=== PATIENT | male | born 1980 | race Two or more races ===

== ENCOUNTER 2017-07-08 10:35 | Emergency (ER) | payer MEDICAID ==
[~2017-07-08] VITALS: Ht 170.2 cm; Wt 68.0 kg
[2017-07-08 11:23] LABS: Urine Bacteria NONE SEEN /hpf (None Seen); Urine Blood Negative /uL (Negative); Urine Specific Gravity 1.033 (1.001-1.035); Urine WBC 1 /hpf (0 - 3)
[2017-07-08 11:25] LABS: Basophils # (auto) 0.1 uL; Lymphocytes # (auto) 1.5 uL; Mean Corpuscular Volume 91.6 fL (80.0-100.0); Red Cell Distribution Width 13.5 % (11.8-14.3); White Blood Cell 8.6 10^3/uL (4.4-10.8)
[2017-07-08 11:26] LABS: Basophils % (auto) 0.6 % (0.0-2.0); Eosinophils # (auto) 0.3 uL; Eosinophils % (auto) 3.1 % (0.0-7.0); Hematocrit 52.9 % (41.0-53.0); Hemoglobin 18.4 g/dL (13.5-17.5); Lymphocytes % (auto) 16.9 % (10.0-50.0); Mean Corpuscular Hemoglobin 31.9 pg (28.0-32.0); Mean Corpuscular Hgb Conc. 34.8 g/dL (32.0-36.0); Monocytes # (auto) 0.9 uL; Monocytes % (auto) 10.4 % (0.0-12.0); Nucleated Red Blood Cells % 0.1 %; Platelet Count (auto) 263 10^3/uL (140-450); Red Blood Cells 5.78 10^6/uL (4.5-5.90)
[2017-07-08 11:41] LABS: Alanine Aminotransferase 81 U/L (16-61); Albumin 3.9 g/dL (3.4-5.0); Alkaline Phosphatase 129 U/L (45-117); Anion Gap 11 (5-15); Aspartate Aminotransferase 53 U/L (15-37); BUN/Creatinine Ratio 5.6; Bilirubin, Total 0.5 mg/dL (0.2-1.0); Blood Alcohol < 3.0 mg/dL (0-5); Blood Urea Nitrogen 5 mg/dL (7-18); Calcium 8.8 mg/dL (8.5-10.1); Carbon Dioxide 23 mmol/L (21-32); Chloride 106 mmol/L (98-107); GFR African American 124 mL/min; GFR Non-African American 103 mL/min; Glucose 124 mg/dL (74-106); Potassium 3.9 mmol/L (3.5-5.1); Sodium 140 mmol/L (136-145); Total Protein 8.3 g/dL (6.4-8.2)
[2017-07-08 11:43] LABS: Amphetamine Screen, Urine NEGATIVE (NEGATIVE); Barbiturate Scree,Urine NEGATIVE (NEGATIVE); Benzodiazephine Screen, Urine NEGATIVE (NEGATIVE); Cocaine Screen, Urine NEGATIVE (NEGATIVE); Opiate Scree,Urine NEGATIVE (NEGATIVE); Phencyclidine Screen, Urine NEGATIVE (NEGATIVE)
[2017-07-08 12:04] LABS: Cannabinoid Screen, Urine POSITIVE (NEGATIVE)
[2017-07-08 12:14] VITALS: BP 163/97
[2017-07-08] MEDS ORDERED: LORazepam 2MG/ML-1ML VIAL IV ONE (12:15)
[2017-07-08] MEDS ORDERED: chlordiazePOXIDE HCL 25 MG CAP PO ONE (12:15)
== END 2017-07-08 13:42 | disposition home or self-care (01) ==
LOC: ER 10:35
DX: F10.239 Alcohol dependence with withdrawal, unspecified (principal); F10.229 Alcohol dependence with intoxication, unspecified; F17.210 Nicotine dependence, cigarettes, uncomplicated; F12.10 Cannabis abuse, uncomplicated; Y90.9 Presence of alcohol in blood, level not specified
CPT/HCPCS: 36415; 80053; 80307; 80320; 81001; 85025; 93005; 96374; 99285; J2060

== ENCOUNTER 2017-07-21 17:19 | Emergency (ER) | payer MEDICAID ==
[~2017-07-21] VITALS: Ht 170.2 cm; Wt 68.0 kg
[2017-07-21] MEDS ORDERED: SODIUM CHLORIDE 0.9% 1,000 ML IV ONE (17:45)
[2017-07-21] MEDS ORDERED: ONDANSETRON HCL 4 MG/2 ML VIAL IV ONE (18:00)
[2017-07-21] MEDS ORDERED: PANTOPRAZOLE 40 MG/10 ML VIAL IV ONE (18:00)
[2017-07-21 18:06] VITALS: BP 134/76
[2017-07-21 18:27] LABS: Basophils # (auto) 0.1 uL; Basophils % (auto) 0.9 % (0.0-2.0); Eosinophils # (auto) 0.2 uL; Eosinophils % (auto) 3.3 % (0.0-7.0); Hematocrit 49.8 % (41.0-53.0); Hemoglobin 17.2 g/dL (13.5-17.5); Lymphocytes # (auto) 2.6 uL; Lymphocytes % (auto) 43.4 % (10.0-50.0); Mean Corpuscular Hemoglobin 31.7 pg (28.0-32.0); Mean Corpuscular Hgb Conc. 34.5 g/dL (32.0-36.0); Mean Corpuscular Volume 91.9 fL (80.0-100.0); Monocytes # (auto) 0.7 uL; Monocytes % (auto) 11.4 % (0.0-12.0); Neutrophils # (auto) 2.5 uL; Nucleated Red Blood Cells % 0.2 %; Platelet Count (auto) 295 10^3/uL (140-450); Red Blood Cells 5.42 10^6/uL (4.5-5.90)
[2017-07-21 18:33] LABS: Urine Bacteria NONE SEEN /hpf (None Seen); Urine Blood Negative /uL (Negative); Urine Specific Gravity 1.008 (1.001-1.035); Urine WBC <1 /hpf (0 - 3)
[2017-07-21 18:47] LABS: Albumin 3.5 g/dL (3.4-5.0); BUN/Creatinine Ratio 3.3; Calcium 7.5 mg/dL (8.5-10.1); Potassium 3.4 mmol/L (3.5-5.1)
[2017-07-21 18:50] LABS: Bilirubin, Total 0.6 mg/dL (0.2-1.0); Total Protein 7.6 g/dL (6.4-8.2)
[2017-07-21 18:54] LABS: Amphetamine Screen, Urine NEGATIVE (NEGATIVE); Barbiturate Scree,Urine NEGATIVE (NEGATIVE); Benzodiazephine Screen, Urine NEGATIVE (NEGATIVE); Cannabinoid Screen, Urine POSITIVE (NEGATIVE); Cocaine Screen, Urine NEGATIVE (NEGATIVE); Opiate Scree,Urine NEGATIVE (NEGATIVE); Phencyclidine Screen, Urine NEGATIVE (NEGATIVE)
== END 2017-07-21 19:20 | disposition home or self-care (01) ==
LOC: EDUNIT# 17:19 → EDBD 17:19 → ER 17:19
DX: K29.70 Gastritis, unspecified, without bleeding (principal); F10.129 Alcohol abuse with intoxication, unspecified; F17.210 Nicotine dependence, cigarettes, uncomplicated; F12.10 Cannabis abuse, uncomplicated
CPT/HCPCS: 36415; 80053; 80307; 80320; 81001; 85025; 96361; 96374; 96375; 99284; C9113; J2405; J7030

== ENCOUNTER 2017-09-21 08:44 | Emergency (ER) | payer MEDICAID ==
[2017-09-21] MEDS ORDERED: SODIUM CHLORIDE 0.9% 1,000 ML IVB ONE (08:51)
[2017-09-21] MEDS ORDERED: THIAMINE 100mg/ml INJ (200mg/2ml VIAL) IV ONE (09:00)
[2017-09-21 09:32] LABS: Basophils # (auto) 0 uL; Eosinophils # (auto) 0.5 uL
[2017-09-21 09:33] LABS: Basophils % (auto) 0.5 % (0.0-2.0); Eosinophils % (auto) 6.4 % (0.0-7.0); Hematocrit 52.1 % (41.0-53.0); Hemoglobin 17.9 g/dL (13.5-17.5); Lymphocytes # (auto) 2.7 uL; Lymphocytes % (auto) 34.3 % (10.0-50.0); Mean Corpuscular Hemoglobin 30.8 pg (28.0-32.0); Mean Corpuscular Hgb Conc. 34.3 g/dL (32.0-36.0); Mean Corpuscular Volume 89.8 fL (80.0-100.0); Monocytes # (auto) 0.8 uL; Monocytes % (auto) 10.5 % (0.0-12.0); Neutrophils # (auto) 3.8 uL; Neutrophils % (auto) 48.3 % (37.0-80.0); Nucleated Red Blood Cells % 0.9 %; Platelet Count (auto) 296 10^3/uL (140-450); Red Cell Distribution Width 13.5 % (11.8-14.3); White Blood Cell 7.9 10^3/uL (4.4-10.8)
[2017-09-21 09:49] LABS: Albumin 3.9 g/dL (3.4-5.0); Calcium 8.2 mg/dL (8.5-10.1); Potassium 3.8 mmol/L (3.5-5.1)
[2017-09-21 10:00] LABS: Bilirubin, Total 0.5 mg/dL (0.2-1.0); Total Protein 8.4 g/dL (6.4-8.2)
[2017-09-21] MEDS ORDERED: chlordiazePOXIDE HCL 5 MG CAP PO ONE (10:45)
[2017-09-21] MEDS ORDERED: SODIUM CHLORIDE 0.9% 1,000 ML IV ONE (11:15)
[2017-09-21 12:42] LABS: Urine Bacteria NONE SEEN /hpf (None Seen); Urine Blood Negative /uL (Negative); Urine Mucus FEW (None Seen); Urine Specific Gravity 1.008 (1.001-1.035); Urine WBC <1 /hpf (0 - 3)
[2017-09-21 12:51] LABS: Amphetamine Screen, Urine NEGATIVE (NEGATIVE); Barbiturate Scree,Urine NEGATIVE (NEGATIVE); Benzodiazephine Screen, Urine POSITIVE (NEGATIVE); Cannabinoid Screen, Urine NEGATIVE (NEGATIVE); Cocaine Screen, Urine NEGATIVE (NEGATIVE); Opiate Scree,Urine NEGATIVE (NEGATIVE); Phencyclidine Screen, Urine NEGATIVE (NEGATIVE)
[2017-09-21 13:00] VITALS: BP 108/79
== END 2017-09-21 13:48 | disposition home or self-care (01) ==
LOC: EDUNIT# 08:44 → ER 08:48
DX: F10.129 Alcohol abuse with intoxication, unspecified (principal); F41.9 Anxiety disorder, unspecified; F32.9 Major depressive disorder, single episode, unspecified; K21.9 Gastro-esophageal reflux disease without esophagitis; F17.210 Nicotine dependence, cigarettes, uncomplicated; F12.10 Cannabis abuse, uncomplicated; Y90.9 Presence of alcohol in blood, level not specified
CPT/HCPCS: 36415; 80053; 80307; 80320; 81001; 85025; 96374; 99284; J3411; J7030

== ENCOUNTER 2017-09-26 03:21 | Emergency (ER) | payer MEDICAID ==
[~2017-09-26] VITALS: Ht 170.2 cm; Wt 59.0 kg
[2017-09-26 03:36] VITALS: BP 147/96
== END 2017-09-26 07:15 | disposition home or self-care (01) ==
LOC: ER 03:23
DX: K04.7 Periapical abscess without sinus (principal); K21.9 Gastro-esophageal reflux disease without esophagitis; F17.210 Nicotine dependence, cigarettes, uncomplicated; F12.10 Cannabis abuse, uncomplicated; Z88.8 Allergy status to other drugs, medicaments and biological substances

== ENCOUNTER 2017-10-12 11:53 | Emergency (ER) | payer MEDICAID ==
[~2017-10-12] VITALS: Ht 175.3 cm; Wt 77.1 kg
[2017-10-12 12:26] LABS: Basophils # (auto) 0 uL; Basophils % (auto) 0.5 % (0.0-2.0); Eosinophils # (auto) 0.1 uL; Eosinophils % (auto) 1.9 % (0.0-7.0); Hematocrit 45.6 % (41.0-53.0); Hemoglobin 15.6 g/dL (13.5-17.5); Lymphocytes % (auto) 16.5 % (10.0-50.0); Mean Corpuscular Hemoglobin 31.3 pg (28.0-32.0); Mean Corpuscular Hgb Conc. 34.3 g/dL (32.0-36.0); Mean Corpuscular Volume 91.2 fL (80.0-100.0); Monocytes # (auto) 0.6 uL; Monocytes % (auto) 9.1 % (0.0-12.0); Neutrophils # (auto) 4.4 uL; Platelet Count (auto) 251 10^3/uL (140-450); Red Cell Distribution Width 15.6 % (11.8-14.3); White Blood Cell 6.2 10^3/uL (4.4-10.8)
[2017-10-12] MEDS ORDERED: LORazepam 2MG/ML-1ML VIAL ONE (12:28)
[2017-10-12] MEDS ORDERED: SODIUM CHLORIDE 0.9% 1,000 ML IVB ONE (12:40)
[2017-10-12] MEDS ORDERED: THIAMINE INJ 100 MG, MULTIPLE VITAMIN 10 ML, FOLIC ACID 1 MG, MAGNESIUM SULF SDV 50% 8 ... IV SCH ×5 (12:44)
[2017-10-12 12:45] LABS: Albumin 3.4 g/dL (3.4-5.0); Anion Gap 9 (5-15); Blood Urea Nitrogen 8 mg/dL (7-18); Calcium 7.8 mg/dL (8.5-10.1); Carbon Dioxide 22 mmol/L (21-32); Chloride 112 mmol/L (98-107); Glucose 110 mg/dL (74-106); Potassium 3.9 mmol/L (3.5-5.1); Sodium 143 mmol/L (136-145)
[2017-10-12] MEDS ORDERED: LORazepam 2MG/ML-1ML VIAL IV ONE ×2 (12:45→15:45)
[2017-10-12] MEDS ORDERED: ALUM & MAG HYDROX-SIMETH LIQ(MAALOX) 30 ML PO ONE (12:45)
[2017-10-12] MEDS ORDERED: DONNATAL 5ml ORAL Elix (BELLADONNA ALK-PHENOBARB) PO ONE (12:45)
[2017-10-12] MEDS ORDERED: FAMOTIDINE 20 MG TAB PO ONE (12:45)
[2017-10-12] MEDS ORDERED: PROMETHAZINE HCL 25 MG/ML 1ML IV PRN (12:45)
[2017-10-12] MEDS ORDERED: LIDOCAINE VISCOUS 2% 15ML UD PO ONE (12:45)
[2017-10-12 12:47] LABS: Alanine Aminotransferase 124 U/L (16-61); Aspartate Aminotransferase 65 U/L (15-37); BUN/Creatinine Ratio 9.8; GFR African American 138 mL/min; GFR Non-African American 114 mL/min
[2017-10-12 12:50] LABS: Alkaline Phosphatase 101 U/L (45-117); Bilirubin, Total 0.6 mg/dL (0.2-1.0); Blood Alcohol < 3.0 mg/dL (0-5); Total Protein 7.2 g/dL (6.4-8.2)
[2017-10-12 13:20] LABS: Magnesium 1.9 mg/dL (1.6-2.6)
[2017-10-12 13:50] LABS: Urine Bacteria NONE SEEN /hpf (None Seen); Urine Blood Negative /uL (Negative); Urine Mucus FEW (None Seen); Urine Specific Gravity 1.013 (1.001-1.035); Urine WBC 1 /hpf (0 - 3)
[2017-10-12 14:08] LABS: Amphetamine Screen, Urine NEGATIVE (NEGATIVE); Barbiturate Scree,Urine NEGATIVE (NEGATIVE); Benzodiazephine Screen, Urine POSITIVE (NEGATIVE); Cannabinoid Screen, Urine NEGATIVE (NEGATIVE); Cocaine Screen, Urine NEGATIVE (NEGATIVE); Opiate Scree,Urine NEGATIVE (NEGATIVE); Phencyclidine Screen, Urine NEGATIVE (NEGATIVE)
[2017-10-12] MEDS ORDERED: SODIUM CHLORIDE 0.9% 1,000 ML IV ONE (15:00)
[2017-10-12 16:42] VITALS: BP 135/85
== END 2017-10-12 16:56 | disposition home or self-care (01) ==
LOC: EDBD 11:53 → ER 11:53
DX: F10.239 Alcohol dependence with withdrawal, unspecified (principal); K29.20 Alcoholic gastritis without bleeding; K21.9 Gastro-esophageal reflux disease without esophagitis; F17.210 Nicotine dependence, cigarettes, uncomplicated
CPT/HCPCS: 36415; 80053; 80307; 80320; 81001; 83690; 83735; 85025; 93005; 96365; 96366; 96375; 96376; 99285; J2060; J3411; J3475; J7030

== ENCOUNTER 2018-04-19 21:34 | Emergency (ER) | payer MEDICAID ==
[~2018-04-19] VITALS: Ht 172.7 cm; Wt 72.6 kg
[2018-04-19] MEDS ORDERED: MVI in SODIUM CHLORIDE 0.9% 1,010 ML ONE (22:09)
[2018-04-19] MEDS ORDERED: LORazepam 2MG/ML-1ML VIAL IM ONE (22:15)
[2018-04-19 22:24] LABS: Basophils # (auto) 0.1 uL; Neutrophils # (auto) 3.3 uL; White Blood Cell 7.7 10^3/uL (4.4-10.8)
[2018-04-19 22:25] LABS: Basophils % (auto) 1.2 % (0.0-2.0); Eosinophils # (auto) 0.4 uL; Eosinophils % (auto) 4.8 % (0.0-7.0); Hematocrit 52.9 % (41.0-53.0); Hemoglobin 18.4 g/dL (13.5-17.5); Lymphocytes # (auto) 3.3 uL; Lymphocytes % (auto) 43.5 % (10.0-50.0); Mean Corpuscular Hemoglobin 31.6 pg (28.0-32.0); Mean Corpuscular Hgb Conc. 34.8 g/dL (32.0-36.0); Mean Corpuscular Volume 90.7 fL (80.0-100.0); Monocytes # (auto) 0.6 uL; Monocytes % (auto) 8.1 % (0.0-12.0); Neutrophils % (auto) 42.4 % (37.0-80.0); Nucleated Red Blood Cells % 0.4 %; Platelet Count (auto) 392 10^3/uL (140-450); Red Blood Cells 5.84 10^6/uL (4.5-5.90); Red Cell Distribution Width 14.7 % (11.8-14.3)
[2018-04-19 22:44] LABS: Albumin 4.1 g/dL (3.4-5.0); Calcium 8.2 mg/dL (8.5-10.1); Potassium 3.8 mmol/L (3.5-5.1)
[2018-04-19 22:47] LABS: BUN/Creatinine Ratio 7.6; Bilirubin, Total 0.6 mg/dL (0.2-1.0); Total Protein 8.6 g/dL (6.4-8.2)
[2018-04-19 22:59] LABS: Acetaminophen < 2.0 ug/mL (10-30); Salicylate < 1.7 mg/dL (2.8-20.0)
[2018-04-19] MEDS ORDERED: FAMOTIDINE (10MG/ML) 2ML VL IV ONE (23:30)
[2018-04-19] MEDS ORDERED: MORPHINE SULFATE 4 MG/ML SYR/VIAL IV ONE ×2 (23:30)
[2018-04-19] MEDS ORDERED: ONDANSETRON HCL 4 MG/2 ML VIAL IV ONE ×2 (23:30)
[2018-04-20 01:20] VITALS: BP 118/60
[2018-04-20] MEDS ORDERED: MULTIPLE VITAMIN 10 ML, MAGNESIUM SULF SDV 50% 8 MEQ in SODIUM CHLORIDE 0.9% 1,000 ML IV SCH (12:00)
== END 2018-04-20 02:11 | disposition home or self-care (01) ==
LOC: ER 21:44
DX: K29.70 Gastritis, unspecified, without bleeding (principal); F10.229 Alcohol dependence with intoxication, unspecified; G92 Toxic encephalopathy; K21.9 Gastro-esophageal reflux disease without esophagitis; F17.210 Nicotine dependence, cigarettes, uncomplicated; F12.90 Cannabis use, unspecified, uncomplicated; Z88.8 Allergy status to other drugs, medicaments and biological substances
CPT/HCPCS: 36415; 74176; 80053; 80320; 80329; 82150; 83690; 85025; 96372; 96374; 96375; 99284; J2060; J2270; J2405; J3411; J3475; J3490

== ENCOUNTER 2018-10-25 09:42 | Inpatient (IN) | payer MEDICAID ==
[~2018-10-25] VITALS: Ht 170.2 cm; Wt 78.1 kg
[2018-10-25] MEDS ORDERED: SODIUM CHLORIDE 0.9% 1,000 ML IV ONE (10:15)
[2018-10-25] MEDS ORDERED: MVI in SODIUM CHLORIDE 0.9% 1,010 ML IV ONE (10:25)
[2018-10-25] MEDS ORDERED: LORazepam 2MG/ML-1ML VIAL IV ONE (10:30)
[2018-10-25] MEDS ORDERED: THIAMINE 100mg/ml INJ (200mg/2ml VIAL) IV ONE ×2 (10:30→15:15)
[2018-10-25 10:37] LABS: Basophils # (auto) 0.1 uL; Eosinophils # (auto) 0.1 uL; Eosinophils % (auto) 0.9 % (0.0-7.0); Monocytes # (auto) 0.9 uL; Platelet Count (auto) 316 10^3/uL (140-450); White Blood Cell 10.6 10^3/uL (4.4-10.8)
[2018-10-25 10:39] LABS: Hemoglobin 19.7 g/dL (13.5-17.5); Lymphocytes # (auto) 1.5 uL; Lymphocytes % (auto) 14.5 % (10.0-50.0); Mean Corpuscular Hemoglobin 33.2 pg (28.0-32.0); Mean Corpuscular Hgb Conc. 34.9 g/dL (32.0-36.0); Monocytes % (auto) 8.3 % (0.0-12.0); Neutrophils % (auto) 75.3 % (37.0-80.0); Red Blood Cells 5.93 10^6/uL (4.5-5.90); Red Cell Distribution Width 13.8 % (11.8-14.3)
[2018-10-25 10:40] LABS: Hematocrit 56.3 % (41.0-53.0); Nucleated Red Blood Cells % 0.5 %
[2018-10-25 10:58] LABS: Albumin 4.3 g/dL (3.4-5.0); Calcium 9.2 mg/dL (8.5-10.1); Potassium 3.9 mmol/L (3.5-5.1)
[2018-10-25 10:59] LABS: INR 1.06 (0.9-1.15); Partial Thromboplastin Time 26.3 sec (23.64-32.05)
[2018-10-25 11:01] LABS: BUN/Creatinine Ratio 7.2; Bilirubin, Total 1.9 mg/dL (0.2-1.0); Total Protein 8.8 g/dL (6.4-8.2)
[2018-10-25 13:17] LABS: Urine WBC None Seen /hpf (0 - 3)
[2018-10-25 13:40] LABS: Urine Amorphous Crystal FEW /hpf (None Seen); Urine Bacteria NONE SEEN /hpf (None Seen); Urine Blood Negative /uL (Negative); Urine Mucus FEW (None Seen); Urine Specific Gravity 1.025 (1.001-1.035)
[2018-10-25 13:59] LABS: Amphetamine Screen, Urine NEGATIVE (NEGATIVE); Barbiturate Scree,Urine NEGATIVE (NEGATIVE); Benzodiazephine Screen, Urine NEGATIVE (NEGATIVE); Cannabinoid Screen, Urine POSITIVE (NEGATIVE); Cocaine Screen, Urine NEGATIVE (NEGATIVE); Opiate Scree,Urine NEGATIVE (NEGATIVE); Phencyclidine Screen, Urine NEGATIVE (NEGATIVE)
[2018-10-25 14:05] LABS: Amylase 28 U/L (25-115); Lipase 22 U/L (73-393)
[2018-10-25] MEDS ORDERED: ONDANSETRON HCL 4 MG/2 ML VIAL ONE (15:11)
[2018-10-25] MEDS ORDERED: chlordiazePOXIDE HCL 25 MG CAP PO ONE (15:15)
[2018-10-25] MEDS ORDERED: NITROGLYCERIN 0.4 MG SL TAB SL PRN (15:15)
[2018-10-25] MEDS ORDERED: chlordiazePOXIDE HCL 25 MG CAP PO PRN (15:15)
[2018-10-25] MEDS ORDERED: PROMETHAZINE HCL 25 MG/ML 1ML IV PRN (15:15)
[2018-10-25] MEDS ORDERED: ONDANSETRON HCL 4 MG/2 ML VIAL IV ONE (15:15)
[2018-10-25] MEDS ORDERED: cefTRIAXone 1GM/50ML D5W 50 ML IV ONE (15:15)
[2018-10-25] MEDS ORDERED: DEXTROSE (50%) 50ML SYRG IV PRN (15:15)
[2018-10-25] MEDS ORDERED: MORPHINE SULF INJ 2 MG/ML SYRINGE 1ML IV PRN (15:15)
[2018-10-25] MEDS: SODIUM CHLORIDE 0.9% 1,000 ML IV SCH ×2 (15:51→21:49)
[2018-10-25] MEDS: LORazepam 2MG/ML-1ML VIAL IV PRN ×2 (15:52→20:03)
[2018-10-25] MEDS: MORPHINE SULFATE 4 MG/ML SYR/VIAL IV PRN ×2 (15:52→20:02)
--- NOTE | 2018-10-25 17:42 | NUR ---
Telemetry admit from JANET KIMBALL admitted to Telemetry unit after SBAR received. Patient oriented to Lida russell RN, unit, room, bed, and unit policies regarding patient care and visiting hours. Patient now on continuous telemetry monitoring, tele box # 49 and telemetry reading on arrival to unit is sinus rhythm in the 90's. Patient weighed by bedscale and encouraged to call if they need something. All questions and concerns addressed, patient verbalized understanding.
[2018-10-25] MEDS: chlordiazePOXIDE HCL 25 MG CAP PO SCH (18:07)
[2018-10-25] MEDS: ACCU-CHEK COMFORT CURVE STRIP VI SCH (18:07)
[2018-10-25 18:30] VITALS: BP 134/101
[2018-10-25 18:41] LABS: Hematocrit 49.4 % (41.0-53.0); Hemoglobin 16.8 g/dL (13.5-17.5)
--- NOTE | 2018-10-25 18:59 | NUR ---
MRSA SWAB OBTAINED AND SENT TO LAB.
--- NOTE | 2018-10-25 19:00 | NUR ---
WOUND PHOTOS TAKEN.
--- NOTE | 2018-10-25 19:25 | NUR ---
Opening Shift Note Received report from sean Hilton RN. Assumed care of patient, awake and alert. No S/S of distress/SOB or pain. Instructed on POC and to call for assist PRN, will continue to monitor for changes Q1hr and PRN. Bed placed in lowest position, bed alarm turned on and call light within reach.
[2018-10-25 20:00] VITALS: BP 135/90
[2018-10-25] MEDS: metroNIDAZOLE 500MG/100ML 100 ML IV SCH (21:47)
[2018-10-25 21:48] VITALS: BP 135/90
[2018-10-25] MEDS: PANTOPRAZOLE 40 MG TAB PO SCH (21:48)
[2018-10-26] MEDS: chlordiazePOXIDE HCL 25 MG CAP PO SCH ×4 (00:33→18:06)
[2018-10-26] MEDS: MORPHINE SULFATE 4 MG/ML SYR/VIAL IV PRN ×6 (00:34→23:45)
[2018-10-26 01:33] LABS: Hematocrit 44.9 % (41.0-53.0); Hemoglobin 15.6 g/dL (13.5-17.5)
[2018-10-26] MEDS: SODIUM CHLORIDE 0.9% 1,000 ML IV SCH ×2 (04:25→11:17)
[2018-10-26 04:51] VITALS: BP 125/74
[2018-10-26] MEDS: metroNIDAZOLE 500MG/100ML 100 ML IV SCH ×3 (05:36→22:14)
[2018-10-26] MEDS: ACCU-CHEK COMFORT CURVE STRIP VI SCH ×4 (05:56→18:06)
--- NOTE | 2018-10-26 06:29 | NUR ---
ROUNDS Patient is resting in bed with eyes closed, no distress noted and patient denies pain with even and unlabored respirations saturating at 97% on room air.
--- NOTE | 2018-10-26 07:20 | NUR ---
PT SLEEPING, EASILY ARISES TO NAME. COOPERATIVE OF CARE. EFFORTLESS BREATHING ON ROOM AIR. IV PATENT TO LAC#18. BED LOCKED AND IN LOWEST POSITION, CALL LIGHT WITHIN REACH. WILL CONTINUE TO MONITOR.
[2018-10-26 08:00] VITALS: BP 104/50
[2018-10-26 08:11] LABS: Basophils # (auto) 0 uL; Basophils % (auto) 0.5 % (0.0-2.0); Eosinophils # (auto) 0.2 uL; Eosinophils % (auto) 4.2 % (0.0-7.0); Hematocrit 44.7 % (41.0-53.0); Hemoglobin 15.3 g/dL (13.5-17.5); Lymphocytes # (auto) 1.8 uL; Mean Corpuscular Hemoglobin 32.8 pg (28.0-32.0); Mean Corpuscular Hgb Conc. 34.2 g/dL (32.0-36.0); Mean Corpuscular Volume 95.9 fL (80.0-100.0); Monocytes # (auto) 0.6 uL; Monocytes % (auto) 10.2 % (0.0-12.0); Neutrophils # (auto) 3.1 uL; Neutrophils % (auto) 54.1 % (37.0-80.0); Nucleated Red Blood Cells % 0.1 %; Platelet Count (auto) 158 10^3/uL (140-450); Red Blood Cells 4.65 10^6/uL (4.5-5.90); Red Cell Distribution Width 13.3 % (11.8-14.3); White Blood Cell 5.7 10^3/uL (4.4-10.8)
[2018-10-26 08:31] LABS: Amylase 20 U/L (25-115); Calcium 8.1 mg/dL (8.5-10.1); Lipase 20 U/L (73-393); Potassium 3.8 mmol/L (3.5-5.1)
[2018-10-26 08:35] LABS: BUN/Creatinine Ratio 8.6; Bilirubin, Total 2.7 mg/dL (0.2-1.0); Total Protein 6.1 g/dL (6.4-8.2)
[2018-10-26] MEDS: THIAMINE 100mg/ml INJ (200mg/2ml VIAL) IV SCH (08:52)
[2018-10-26] MEDS: PANTOPRAZOLE 40 MG TAB PO SCH ×2 (08:52→22:14)
[2018-10-26] MEDS: cefTRIAXone 1GM/50ML D5W 50 ML IV SCH (08:52)
[2018-10-26] MEDS: LORazepam 2MG/ML-1ML VIAL IV PRN ×2 (08:53→21:43)
[2018-10-26 12:58] VITALS: BP 125/80
--- NOTE | 2018-10-26 13:18 | NUR ---
PT COUNSELLED ON IMPORTANCE OF NOT SMOKING WHILE INPATIENT. PT VERBALIZED HE CANNOT STOP NOR ABSTAIN FROM SMOKING AT THIS TIME. PT OFFERED A NICOTINE PATCH, REFUSED.
--- NOTE | 2018-10-26 13:20 | NUR ---
PT SIGNED WAIVER TO SMOKE AMA.
[2018-10-26] MEDS ORDERED: OCTREOTIDE ACETATE 100 MCG in SODIUM CHL 0.9% 50 ML IV ONE (14:15)
[2018-10-26] MEDS: OCTREOTIDE ACETATE 500 MCG in SODIUM CHL 0.9% 99 ML IV SCH (15:20)
[2018-10-26 16:30] VITALS: BP 117/79
--- NOTE | 2018-10-26 17:22 | NUR ---
assessment Patient is a 37 year old male who is alert and oriented. Patients cognitive abilities are intact. Prior to admission patient lived home with family and functioned independently. Patient informed me he is able to care for his own ADLs. Per patient he will return home to his prior living arrangements post discharge and family will transport him home. Patient informed me he has been drinking since age 13 years. Patient informed me he consumes 15 to 20 shots of vodka per day. Patient is willing to accept resources for rehab. I also informed patient to call the number on his [facility] card and do a phone interview for counseling. Patient agreed to call. Patient did not want to talk about his past or childhood. Patient stated he would talk to a therapist on his own. [facility] will provide patient with rehab resources. I informed patient he has a right to speak to a manager social responsibility regarding all care. I informed patient he has a right to participate in any and all discharge planning. Patient is aware of visiting hours on the hospital floor. I informed patient he has a right to privacy. Patient does not have a POA and advanced directive. I have offered patient information on POA and advanced directives. I informed the patient the advantages and benefits of having an Advanced Directive. Patient verbalized understanding and agreed to discharge plan home. Addendum: 10/26/18 at 1725 by Arianna BLAIR Amended: Links added.
[2018-10-26 22:00] VITALS: BP 138/83
[2018-10-27] MEDS: chlordiazePOXIDE HCL 25 MG CAP PO SCH ×3 (00:15→11:52)
[2018-10-27] MEDS ORDERED: ONDANSETRON HCL 4 MG/2 ML VIAL IV PRN ×2 (01:15→09:00)
[2018-10-27] MEDS: OCTREOTIDE ACETATE 500 MCG in SODIUM CHL 0.9% 99 ML IV SCH (01:50)
[2018-10-27] MEDS: LORazepam 2MG/ML-1ML VIAL IV PRN ×2 (01:51→04:00)
[2018-10-27] MEDS: MORPHINE SULFATE 4 MG/ML SYR/VIAL IV PRN ×2 (04:00→11:53)
[2018-10-27 05:00] VITALS: BP 131/86
[2018-10-27] MEDS ORDERED: HYDROmorphone HCL 2 MG/ML VL IV ONE (06:00)
[2018-10-27] MEDS: ACCU-CHEK COMFORT CURVE STRIP VI SCH ×3 (06:00→11:53)
[2018-10-27 06:31] LABS: Basophils # (auto) 0 uL; Basophils % (auto) 0.5 % (0.0-2.0); Eosinophils # (auto) 0.3 uL; Eosinophils % (auto) 5.9 % (0.0-7.0); Hemoglobin 16.6 g/dL (13.5-17.5); Lymphocytes % (auto) 17.4 % (10.0-50.0); Mean Corpuscular Hgb Conc. 34.6 g/dL (32.0-36.0); Mean Corpuscular Volume 95.5 fL (80.0-100.0); Monocytes # (auto) 0.5 uL; Monocytes % (auto) 9.3 % (0.0-12.0); Neutrophils # (auto) 3.9 uL; Neutrophils % (auto) 66.9 % (37.0-80.0); Nucleated Red Blood Cells % 0.1 %; Platelet Count (auto) 141 10^3/uL (140-450); Red Blood Cells 5.03 10^6/uL (4.5-5.90); Red Cell Distribution Width 12.9 % (11.8-14.3); White Blood Cell 5.8 10^3/uL (4.4-10.8)
[2018-10-27] MEDS: metroNIDAZOLE 500MG/100ML 100 ML IV SCH (06:37)
--- NOTE | 2018-10-27 06:40 | NUR ---
IV to L AC red and tender per patient. D/c'd IV and New IV started to L KIMBROUGH 22 G. Pain medication given per orders for 1x dose. Patient complained of pain all night with very little relief from pain meds. Stated he also has hallucinations from time to time from morphine. Hospitalist was notified around 0030. With no changes to medication. Ativan was given often per orders almost q2. NPO since 0000. Consents signed for EGD and checklist completed. No BM last night. Continues on drip per orders.
[2018-10-27 06:50] LABS: Calcium 8.5 mg/dL (8.5-10.1); Potassium 3.9 mmol/L (3.5-5.1)
[2018-10-27 06:53] LABS: BUN/Creatinine Ratio 5.6
[2018-10-27 08:22] VITALS: BP 110/68
--- NOTE | 2018-10-27 08:32 | NUR ---
D/C Planning Per SS Consult for ETOH abuse.Pt friend Sridevi was at bedside when speaking to Pt. Pt stated he drinks 15-20 shots of Vodka a day for the last 2 years however, he stated he has been drinking all his life on and off. Pt stated he enjoys drinking because he likes the taste of the alcohol and he also stated he needs help. Pt was given resources for alcohol service Providers and stated he will be contacting [facility] upon d/c day. Pt verbalize understanding.
[2018-10-27] MEDS ORDERED: ePHEDrine SULFATE 50 MG/ML AMP IV PRN (09:00)
[2018-10-27] MEDS ORDERED: MIDAZOLAM HCL 1MG/1ML-2 ML VIAL IV PRN (09:00)
[2018-10-27] MEDS ORDERED: KETOROLAC TROMETH 30 MG/ML 1ML VIAL IV ONE (09:00)
[2018-10-27] MEDS ORDERED: MORPHINE SULFATE 4 MG/ML SYR/VIAL IV PRN (09:00)
[2018-10-27] MEDS ORDERED: HYDROmorphone HCL 2 MG/ML VL IV PRN (09:00)
[2018-10-27] MEDS ORDERED: LABETALOL HCL 5 MG/ML 4ML SYRINGE IV PRN (09:00)
[2018-10-27] MEDS: cefTRIAXone 1GM/50ML D5W 50 ML IV SCH (09:00)
[2018-10-27] MEDS ORDERED: fentaNYL CITRATE 100 MCG/2 ML VL ONE (09:07)
[2018-10-27] MEDS ORDERED: MIDAZOLAM HCL 1MG/1ML-2 ML VIAL ONE (09:07)
[2018-10-27] MEDS ORDERED: DexAMETHasone SOD PHOS 10MG/1ML VIAL INJ ONE (09:16)
[2018-10-27] MEDS ORDERED: PROPOFOL 10 MG/ML 20 ML IV ONE (09:26)
[2018-10-27] MEDS: PANTOPRAZOLE 40 MG TAB PO SCH (10:50)
[2018-10-27] MEDS: THIAMINE 100mg/ml INJ (200mg/2ml VIAL) IV SCH (10:50)
[2018-10-27 11:43] VITALS: BP 117/77
--- NOTE | 2018-10-27 13:00 | NUR ---
Discharge instructions given as ordered. Encourage to follow up with PMD as instructed. All questions and concerns addressed. Patient verbalized understanding. Medication reconciliation form completed and copy given to patient. Home medications held in Pharmacy returned to patient, and needed vaccines given. IV removed with catheter intact, pressure dressing applied. Telemetry unit returned to ICU. Patient taken to vehicle via wheelchair with all personal belongings, accompanied by staff and family member. No distress noted at time of departure. Educated patient on need to stop drinking and gave numbers for [facility] and the [facility].
== END 2018-10-27 12:35 | disposition home or self-care (01) | DRG 241 ==
LOC: ER 09:46 → TELE 09:47 → TELE-WESTW 17:46
PROVIDERS: ADMIT Internal Medicine; ATTEND Internal Medicine Nephrology
PROC: 0DB68ZX Excision of Stomach, Via Natural or Artificial Opening Endoscopic, Diagnostic (ICD-10-PCS; principal; 2018-10-27 09:01)
DX: K29.71 Gastritis, unspecified, with bleeding (principal); F10.231 Alcohol dependence with withdrawal delirium; K74.60 Unspecified cirrhosis of liver; K20.9 Esophagitis, unspecified; F17.210 Nicotine dependence, cigarettes, uncomplicated; F12.90 Cannabis use, unspecified, uncomplicated; Y90.9 Presence of alcohol in blood, level not specified; K76.0 Fatty (change of) liver, not elsewhere classified; Z80.1 Family history of malignant neoplasm of trachea, bronchus and lung; Z80.3 Family history of malignant neoplasm of breast; Z80.42 Family history of malignant neoplasm of prostate; Z82.49 Family history of ischemic heart disease and other diseases of the circulatory system; Z83.3 Family history of diabetes mellitus; Z88.8 Allergy status to other drugs, medicaments and biological substances
CPT/HCPCS: 36415; 43239; 74176; 80048; 80053; 80307; 80320; 81001; 82150; 82962; 83036; 83690; 85014; 85018; 85025; 85045; 85610; 85730; 87081; G0378; J0696; J1100; J2250; J2405; J2704; J3490

== ENCOUNTER 2019-08-16 15:55 | Inpatient (IN) | payer MEDICAID ==
[~2019-08-16] VITALS: Ht 165.1 cm; Wt 60.9 kg
[2019-08-16] MEDS ORDERED: ACETAMINOPHEN 325 MG TAB PO ONE ×2 (16:37→16:45)
[2019-08-16] MEDS ORDERED: SODIUM CHLORIDE 0.9% 1,000 ML IV SCH (16:59)
[2019-08-16] MEDS ORDERED: DexAMETHasone SOD PHOS 4 MG/1ML SDV INJ IV ONE ×2 (17:00→23:30)
[2019-08-16] MEDS ORDERED: PANTOPRAZOLE 40 MG/10 ML VIAL INJ IV ONE (17:00)
[2019-08-16] MEDS ORDERED: ENOXAPARIN SOD 100 MG/1 ML SYRINGE SC ONE (17:00)
[2019-08-16] MEDS ORDERED: SODIUM CHLORIDE 0.9% 1,000 ML IV ONE (17:00)
[2019-08-16] MEDS ORDERED: ASCORBIC ACID 500 MG TAB PO ONE (17:00)
[2019-08-16] MEDS ORDERED: ONDANSETRON HCL 4 MG/2 ML VIAL IV PRN (17:00)
[2019-08-16] MEDS ORDERED: ZINC SULFATE 220mg CAP or TAB PO ONE (17:00)
[2019-08-16] MEDS ORDERED: LORazepam 0.5 MG TAB PO PRN (17:00)
[2019-08-16] MEDS ORDERED: NITROGLYCERIN 0.4 MG SL TAB SL PRN (17:00)
[2019-08-16] MEDS ORDERED: AZITHROMYCIN 500MG/ 250ML 250 ML IV ONE (17:00)
[2019-08-16] MEDS ORDERED: MORPHINE SULF INJ 2 MG/ML SYRINGE 1ML IV PRN (17:00)
[2019-08-16] MEDS ORDERED: ALUM & MAG HYDROX-SIMETH LIQ(MAALOX) 30 ML PO PRN (17:00)
[2019-08-16] MEDS ORDERED: DOCUSATE SOD 100 MG CAP PO PRN (17:00)
[2019-08-16] MEDS ORDERED: ONDANSETRON HCL 4 MG/2 ML VIAL IV ONE (17:00)
[2019-08-16] MEDS ORDERED: MORPHINE SULF INJ 2 MG/ML SYRINGE 1ML IV ONE (17:00)
[2019-08-16 17:19] LABS: Basophils # (auto) 0 10 ^3/uL (0-0.2); Basophils % (auto) 0.2 % (0.0-2.0); Eosinophils # (auto) 0.1 10 ^3/uL (0-0.8); Eosinophils % (auto) 0.6 % (0.0-7.0); Lymphocytes # (auto) 0.9 10 ^3/uL (0.4-5.4); Lymphocytes % (auto) 5.9 % (10.0-50.0); Mean Corpuscular Hemoglobin 31.2 pg (28.0-32.0); Mean Corpuscular Hgb Conc. 33.5 g/dL (32.0-36.0); Mean Corpuscular Volume 93.1 fL (80.0-100.0); Monocytes # (auto) 0.8 10 ^3/uL (0-1.3); Monocytes % (auto) 5.1 % (0.0-12.0); Neutrophils # (auto) 13.1 10 ^3/uL (1.6-8.6); Neutrophils % (auto) 88.2 % (37.0-80.0); Platelet Count (auto) 293 10^3/uL (140-450); Red Cell Distribution Width 13.9 % (11.8-14.3); White Blood Cell 14.8 10^3/uL (4.4-10.8)
[2019-08-16 17:36] LABS: Alanine Aminotransferase 10 U/L (16-61); Albumin 2.6 g/dL (3.4-5.0); Anion Gap 8 (5-15); Aspartate Aminotransferase 18 U/L (15-37); BUN/Creatinine Ratio 17.5; Blood Urea Nitrogen 14 mg/dL (7-18); Calcium 8.2 mg/dL (8.5-10.1); Carbon Dioxide 25 mmol/L (21-32); Chloride 106 mmol/L (98-107); GFR African American 141 mL/min; GFR Non-African American 116 mL/min; Glucose 97 mg/dL (74-106); Potassium 3.5 mmol/L (3.5-5.1); Sodium 139 mmol/L (136-145)
[2019-08-16 17:40] LABS: Alkaline Phosphatase 66 U/L (45-117); Bilirubin, Total 0.7 mg/dL (0.2-1.0); Total Protein 7.6 g/dL (6.4-8.2)
[2019-08-16 17:43] LABS: Magnesium 2.3 mg/dL (1.6-2.6)
[2019-08-16 17:45] LABS: Cholesterol 103 mg/dL (< 200)
[2019-08-16 17:47] LABS: HDL Cholesterol 22 mg/dL (40-59); LDL Cholesterol 72 mg/dL (< 100); Triglycerides 104 mg/dL (< 150)
[2019-08-16 17:51] LABS: CRP High Sensitivity 15.5 mg/dL (< 0.3)
--- NOTE | 2019-08-16 20:50 | NUR ---
Telemetry admit from JANET KIMBALL admitted to Telemetry unit. Patient oriented to AUDELIA ARITA, primary RN, unit, room, bed, and unit policies regarding patient care and visiting hours. Patient now on continuous telemetry monitoring, tele box #5 and telemetry reading on arrival to unit is SR. Patient placed on bedside oxygen, weighed by bedscale and encouraged to call if they need something. Patient is currently resting in bed with the rails up x2, bed locked in the lowest position and the call light is within reach. All questions and concerns addressed, patient verbalized understanding.
[2019-08-16] MEDS: MORPHINE SULF INJ 2 MG/ML SYRINGE 1ML IV PRN (21:46)
[2019-08-16 22:00] VITALS: BP 106/63
[2019-08-16] MEDS ORDERED: DOXYCYCLINE 100 MG TAB/CAP PO SCH (22:00)
[2019-08-16] MEDS: ALBUTEROL SULF HFA 90MCG INH 200DOSE IN SCH (22:23)
[2019-08-16] MEDS ORDERED: LORazepam 2MG/ML-1ML VIAL IV PRN (23:30)
[2019-08-16] MEDS ORDERED: VANCOMYCIN PER PHARMACY 0 MG IV SCH (23:30)
[2019-08-16] MEDS ORDERED: FUROSEMIDE 20 MG/2 ML VIAL IV ONE (23:30)
[2019-08-16] MEDS ORDERED: VANCOMYCIN 1GM/250ML 250 ML IV ONE (23:45)
[2019-08-16] MEDS ORDERED: FAMOTIDINE (10MG/ML) 2ML VL IV ONE (23:45)
[2019-08-17] MEDS: DexAMETHasone SOD PHOS 4 MG/1ML SDV INJ IV SCH ×4 (01:43→21:54)
[2019-08-17] MEDS: MORPHINE SULF INJ 2 MG/ML SYRINGE 1ML IV PRN ×5 (01:48→20:42)
[2019-08-17 01:57] VITALS: BP 106/63
--- NOTE | 2019-08-17 02:15 | NUR ---
Patient transferred to room 218A Report Given to Sherrie BARRAGAN.
--- NOTE | 2019-08-17 02:20 | NUR ---
Patient arrived to room 218A Patient A&Ox4, 2L NC, VS: T 97.6, RR 20, HR 78, BP 111/74, 94%. Discussed POC with patient who verbalized understanding. IV to right FA which is patent and intact. Applied anti-slip socks and requested patient to call for assistance. Oriented patient to room, bathroom, call light, and bedside supplies. Bed in lowest locked position with 2 side rails up. Call light within reach. Will continue to monitor.
--- NOTE | 2019-08-17 03:25 | NUR ---
Patient requested anti-anxiety medication Patient stated that he was experiencing difficulty relaxing and that he could not stop worrying. Administered 0.5 mg Ativan per EMAR. Will continue to monitor.
[2019-08-17 05:00] VITALS: BP 96/56
[2019-08-17] MEDS ORDERED: FUROSEMIDE 20 MG/2 ML VIAL IV SCH (06:00)
[2019-08-17] MEDS: ALBUTEROL SULF HFA 90MCG INH 200DOSE IN SCH (06:15)
[2019-08-17] MEDS: PIPERACILLIN-TAZOB 3.375GM 100 ML IV SCH ×5 (06:19→23:59)
--- NOTE | 2019-08-17 06:30 | NUR ---
Pain Patient c/o 7/10 chest pain. Administered 2 mg Morphine per EMAR. Will continue to monitor.
--- NOTE | 2019-08-17 07:00 | NUR ---
Pain reassessed Patient resting with eyes closed, respirations even and non-labored with no s/s of distress.
--- NOTE | 2019-08-17 07:25 | NUR ---
Closing shift note Patient resting, no SOB or s/s of distress at this time. Endorsed care to day shift RN.
[2019-08-17 09:00] VITALS: BP 96/56
[2019-08-17] MEDS: FAMOTIDINE (10MG/ML) 2ML VL IV SCH ×2 (09:20→21:54)
[2019-08-17] MEDS: CHOLECALCIFEROL (VITD3) 1,000UNIT=25mCg TAB PO SCH (09:20)
[2019-08-17 09:42] LABS: Basophils # (auto) 0 10 ^3/uL (0-0.2); Basophils % (auto) 0.1 % (0.0-2.0); Eosinophils # (auto) 0 10 ^3/uL (0-0.8); Eosinophils % (auto) 0.1 % (0.0-7.0); Hematocrit 44.3 % (41.0-53.0); Hemoglobin 14.8 g/dL (13.5-17.5); Lymphocytes # (auto) 0.5 10 ^3/uL (0.4-5.4); Lymphocytes % (auto) 3.5 % (10.0-50.0); Mean Corpuscular Hgb Conc. 33.4 g/dL (32.0-36.0); Mean Corpuscular Volume 92.8 fL (80.0-100.0); Monocytes # (auto) 0.3 10 ^3/uL (0-1.3); Monocytes % (auto) 1.8 % (0.0-12.0); Neutrophils # (auto) 13.6 10 ^3/uL (1.6-8.6); Neutrophils % (auto) 94.5 % (37.0-80.0); Platelet Count (auto) 322 10^3/uL (140-450); Red Blood Cells 4.77 10^6/uL (4.5-5.90); Red Cell Distribution Width 14.2 % (11.8-14.3); White Blood Cell 14.4 10^3/uL (4.4-10.8)
[2019-08-17 09:57] LABS: Albumin 2.5 g/dL (3.4-5.0); Magnesium 2.7 mg/dL (1.6-2.6)
[2019-08-17 10:00] LABS: BUN/Creatinine Ratio 16.7
[2019-08-17] MEDS ORDERED: ENOXAPARIN SOD 40 MG/0.4 ML SYRINGE SC SCH (10:00)
[2019-08-17] MEDS ORDERED: ZINC SULFATE 220mg CAP or TAB PO SCH (10:00)
[2019-08-17] MEDS ORDERED: ENOXAPARIN SOD 100 MG/1 ML SYRINGE SC SCH (10:00)
[2019-08-17] MEDS ORDERED: ASCORBIC ACID 1,000 MG TAB PO SCH (10:00)
[2019-08-17 10:01] LABS: Bilirubin, Total 0.8 mg/dL (0.2-1.0); Phosphorus 3.9 mg/dL (2.5-4.90); Total Protein 7.7 g/dL (6.4-8.2)
[2019-08-17 10:04] LABS: INR 1.18 (0.9-1.15); Partial Thromboplastin Time 34.7 sec (23.64-32.05)
[2019-08-17] MEDS: ALBUTEROL SULF 2.5 MG/0.5ML(0.5%) NEB SOLN NEB SCH ×2 (11:51→18:38)
[2019-08-17 13:00] VITALS: BP 101/64
[2019-08-17] MEDS ORDERED: MULTIPLE VITAMINS W/ MINERALS TAB PO ONE (14:00)
[2019-08-17] MEDS ORDERED: THIAMINE HCL 100 MG TAB PO ONE (14:00)
[2019-08-17] MEDS: VANCOMYCIN 1GM/250ML 250 ML IV SCH (14:47)
[2019-08-17 17:00] VITALS: BP 102/62
--- NOTE | 2019-08-17 19:30 | NUR ---
Opening Shift Note Assumed care of patient, awake and alert X4. No S/S of distress/SOB or pain. Call light is within reach, side rails up x2, bed is in the lowest position. Instructed on POC and to call for assist PRN, will continue to monitor for changes Q1hr and PRN.
[2019-08-17] MEDS: guaiFENesin-DM 100/10mg/5ml SYR PO PRN (20:42)
[2019-08-17] MEDS: ENOXAPARIN SOD 80 MG/0.8ML SYRINGE SC SCH (21:54)
[2019-08-17] MEDS: HYDROcodone-ACET 5/325MG TAB PO PRN (21:55)
[2019-08-17 22:00] VITALS: BP 98/69
--- NOTE | 2019-08-18 | NUR ---
Respiratory note: NO TX GIVEN AT THIS TIME PER PT REQUEST. DURING 1800 TX PT STATED HE WANTED TO "POSTPONE" NEXT TX UNTIL 0700. PT WAS NOTIFIED TO CALL FOR TX IF HE CHANGED HIS MIND OR BECOMES SOB. PT VERBALIZED UNDERSTANDING.
[2019-08-18] MEDS: guaiFENesin-DM 100/10mg/5ml SYR PO PRN (00:47)
[2019-08-18] MEDS: MORPHINE SULF INJ 2 MG/ML SYRINGE 1ML IV PRN ×5 (00:47→21:02)
[2019-08-18] MEDS: VANCOMYCIN 1GM/250ML 250 ML IV SCH ×2 (03:03→15:58)
[2019-08-18 05:00] VITALS: BP 104/69
[2019-08-18] MEDS: PIPERACILLIN-TAZOB 3.375GM 100 ML IV SCH ×3 (05:57→18:00)
[2019-08-18] MEDS: ALBUTEROL SULF 2.5 MG/0.5ML(0.5%) NEB SOLN NEB SCH ×4 (06:48→18:26)
[2019-08-18 09:00] VITALS: BP 104/64
[2019-08-18] MEDS: DexAMETHasone SOD PHOS 4 MG/1ML SDV INJ IV SCH (10:15)
[2019-08-18] MEDS: ENOXAPARIN SOD 80 MG/0.8ML SYRINGE SC SCH (10:16)
[2019-08-18] MEDS: FAMOTIDINE (10MG/ML) 2ML VL IV SCH ×2 (10:16→22:00)
[2019-08-18] MEDS: MULTIPLE VITAMINS W/ MINERALS TAB PO SCH (10:16)
[2019-08-18] MEDS: THIAMINE HCL 100 MG TAB PO SCH (10:16)
[2019-08-18] MEDS: CHOLECALCIFEROL (VITD3) 1,000UNIT=25mCg TAB PO SCH (10:16)
[2019-08-18 10:46] LABS: INR 1.24 (0.9-1.15)
[2019-08-18 10:47] LABS: Hematocrit 45.8 % (41.0-53.0); Hemoglobin 15.1 g/dL (13.5-17.5); Mean Corpuscular Hemoglobin 30.8 pg (28.0-32.0); Mean Corpuscular Hgb Conc. 32.9 g/dL (32.0-36.0); Mean Corpuscular Volume 93.7 fL (80.0-100.0); Platelet Count (auto) 334 10^3/uL (140-450); Red Blood Cells 4.88 10^6/uL (4.5-5.90); Red Cell Distribution Width 14.1 % (11.8-14.3); White Blood Cell 18.9 10^3/uL (4.4-10.8)
[2019-08-18 11:03] LABS: Basophils % (manual) 0 (0.0-2.0); Blast Cells 0; Calcium 9.1 mg/dL (8.5-10.1); Eosinophils % (manual) 0 (0-7); Metamyelocytes % 0; Myelocytes % 0; Potassium 3.9 mmol/L (3.5-5.1); Promyelocytes % 0; Reactive Lymphocytes 0
[2019-08-18 11:11] LABS: BUN/Creatinine Ratio 20.6; CRP High Sensitivity 9.96 mg/dL (< 0.3)
[2019-08-18 13:00] VITALS: BP 114/71
[2019-08-18 14:23] LABS: Band Neutrophils % (manual) 2; Lymphocytes % (manual) 2 (10.0-50.0); Monocytes % (manual) 4 (0-12)
[2019-08-18 17:00] VITALS: BP 109/70
[2019-08-18] MEDS: SODIUM CHLORIDE 0.9% 1,000 ML IV SCH (17:14)
--- NOTE | 2019-08-18 18:30 | NUR ---
RT NOTE PT WAS SEEN BY RT FOR HHN TX. PT TOLERATES WELL VIA MASK NOTED. CONT ORDERED. Addendum: 08/18/19 at 1832 by Emma Quinn RT Amended: Links added.
--- NOTE | 2019-08-18 20:00 | NUR ---
Assumed care of patient, awake and alert. No S/S of distress/SOB or pain. Insructed on POC and to callfor assist PRN, will continue to monitor for changes Q1hr and PRN.
[2019-08-18 22:00] VITALS: BP 137/66
[2019-08-19] MEDS: VANCOMYCIN 1GM/250ML 250 ML IV SCH ×6 (00:12→17:47)
[2019-08-19] MEDS: ALBUTEROL SULF 2.5 MG/0.5ML(0.5%) NEB SOLN NEB SCH ×4 (00:14→23:02)
--- NOTE | 2019-08-19 00:15 | NUR ---
RT NOTE PT WAS SEEN BY RT FOR HHN TX. PT TOLERATES WELL VIA MASK. NO ADVERSE REACTION NOTED. LONG NASAL CANNULA PROVIDED FOR PT SO HE CAN USE RESTROOM WITHOUT TAKING OFF NASAL CANNULA. CONT ORDERED Addendum: 08/19/19 at 0034 by Emma Quinn RT Amended: Links added.
[2019-08-19] MEDS: MORPHINE SULF INJ 2 MG/ML SYRINGE 1ML IV PRN ×5 (01:15→22:40)
[2019-08-19 05:00] VITALS: BP 100/71
[2019-08-19 05:36] LABS: Basophils # (auto) 0 10 ^3/uL (0-0.2); Basophils % (auto) 0.2 % (0.0-2.0); Eosinophils # (auto) 0.2 10 ^3/uL (0-0.8); Eosinophils % (auto) 1.4 % (0.0-7.0); Hematocrit 47.2 % (41.0-53.0); Hemoglobin 15.4 g/dL (13.5-17.5); Lymphocytes # (auto) 1.2 10 ^3/uL (0.4-5.4); Mean Corpuscular Hgb Conc. 32.7 g/dL (32.0-36.0); Mean Corpuscular Volume 94.8 fL (80.0-100.0); Monocytes # (auto) 0.6 10 ^3/uL (0-1.3); Monocytes % (auto) 3.8 % (0.0-12.0); Neutrophils # (auto) 12.5 10 ^3/uL (1.6-8.6); Neutrophils % (auto) 86.6 % (37.0-80.0); Platelet Count (auto) 341 10^3/uL (140-450); Red Blood Cells 4.97 10^6/uL (4.5-5.90); Red Cell Distribution Width 13.8 % (11.8-14.3); White Blood Cell 14.5 10^3/uL (4.4-10.8)
[2019-08-19] MEDS: PIPERACILLIN-TAZOB 3.375GM 100 ML IV SCH ×4 (06:02→18:32)
--- NOTE | 2019-08-19 07:40 | NUR ---
Opening Shift Note Assumed care of patient, awake and alert. No S/S of distress/SOB or pain. Instructed on POC and to call for assist PRN, will continue to monitor for changes Q1hr and PRN. Bed locked in lowest position with two side rails up and call light in reach.
[2019-08-19] MEDS: SODIUM CHLORIDE 0.9% 1,000 ML IV SCH (08:55)
[2019-08-19 09:26] VITALS: BP 113/57
[2019-08-19] MEDS: MULTIPLE VITAMINS W/ MINERALS TAB PO SCH (10:24)
[2019-08-19] MEDS: FAMOTIDINE (10MG/ML) 2ML VL IV SCH ×2 (10:24→21:58)
[2019-08-19] MEDS: THIAMINE HCL 100 MG TAB PO SCH (10:24)
[2019-08-19] MEDS: ENOXAPARIN SOD 40 MG/0.4 ML SYRINGE SC SCH (10:25)
[2019-08-19 12:45] VITALS: BP 100/62
[2019-08-19 15:21] LABS: Amphetamine Screen, Urine NEGATIVE (NEGATIVE); Barbiturate Scree,Urine NEGATIVE (NEGATIVE); Benzodiazephine Screen, Urine POSITIVE (NEGATIVE); Cannabinoid Screen, Urine POSITIVE (NEGATIVE); Cocaine Screen, Urine NEGATIVE (NEGATIVE); Opiate Scree,Urine POSITIVE (NEGATIVE); Phencyclidine Screen, Urine NEGATIVE (NEGATIVE)
[2019-08-19] MEDS: PROMETHAZINE W/CODEINE 5 ML ORAL SYRUP PO PRN (15:33)
[2019-08-19] MEDS ORDERED: IOHEXOL 350 MG/ML 100ML IJ ONE (16:10)
--- NOTE | 2019-08-19 17:15 | NUR ---
RECEIVED CALL FROM DR MERAZ REGARDING CONSULT. UPDATED ON THE PATIENT STATUS AND REASON FOR CONSULT. PER DR MERAZ HE WILL BE IN TOMORROW MORNING TO SEE PATIENT.
[2019-08-19 17:24] LABS: Albumin 2.7 g/dL (3.4-5.0); Bilirubin, Direct 0.2 mg/dL (0-0.2)
[2019-08-19 17:27] LABS: Bilirubin, Total 0.8 mg/dL (0.2-1.0); Total Protein 7.8 g/dL (6.4-8.2)
[2019-08-19 17:34] LABS: Hepatitis B Surface Antibody Negative
[2019-08-19 18:05] LABS: Hepatitis B Surface Antigen Negative (Negative)
[2019-08-19 18:13] LABS: Hepatitis A Total Antibody Negative
[2019-08-19] MEDS: IPRATROPIUM BROM 0.5 MG/2.5ML INH SOL NEB SCH ×2 (18:21→23:02)
[2019-08-19 18:30] LABS: Hepatitis B Core Total AB Negative; Hepatitis C Antibody Negative (Negative)
--- NOTE | 2019-08-19 19:20 | NUR ---
Opening Shift Note Assumed care of patient, pt awake and alert. Pt laying down in bed in semi-fowlers position. Pt is on 3 L NC with even and unlabored respirations. No S/S of distress/SOB or pain at this time. Bed is in lowest position, wheels are locked, side rails up x2 and call light is within reach. Instructed on POC and to call for assist PRN, will continue to monitor for changes Q1hr and PRN.
[2019-08-19 22:00] VITALS: BP 98/57
[2019-08-19 22:59] VITALS: BP 100/62
--- NOTE | 2019-08-20 00:16 | NUR ---
Rounds Patient sleeping quietly in bed. Pt is on 3 L NC with even chest rise and fall present. No S/S of distress/SOB or pain. Will continue to monitor changes q1hr and PRN.
[2019-08-20] MEDS: PIPERACILLIN-TAZOB 3.375GM 100 ML IV SCH ×5 (00:43→23:52)
[2019-08-20] MEDS: VANCOMYCIN 1GM/250ML 250 ML IV SCH ×3 (00:44→16:47)
[2019-08-20] MEDS: PROMETHAZINE W/CODEINE 5 ML ORAL SYRUP PO PRN ×2 (01:19→20:21)
[2019-08-20] MEDS: SODIUM CHLORIDE 0.9% 1,000 ML IV SCH ×2 (01:20→15:50)
--- NOTE | 2019-08-20 01:25 | NUR ---
SPUTUM CULTURE COLLECTED AND SENT VIA BULLET TO LAB
[2019-08-20] MEDS: ALBUTEROL SULF 2.5 MG/0.5ML(0.5%) NEB SOLN NEB SCH ×6 (02:38→22:25)
[2019-08-20] MEDS: IPRATROPIUM BROM 0.5 MG/2.5ML INH SOL NEB SCH ×6 (02:38→22:25)
--- NOTE | 2019-08-20 03:45 | NUR ---
ASSUMED CARE ASSUMED CARE OF PATIENT AFTER REPORT RECEIVED FROM YUNG JOVEL. PATIENT ASLEEP, EVEN UNLABORED RESPIRATIONS. NO S/S OF DISTRESS, SOB OR PAIN. BED ALARM ON FOR SAFETY. WILL CONTINUE TO MONITOR
--- NOTE | 2019-08-20 04:15 | NUR ---
TEMPERATURE PATIENT TEMP 100.2F. COOLING MEASURES PLACED. WILL REASSESS. WILL CONTINUE TO MONITOR
--- NOTE | 2019-08-20 05:00 | NUR ---
TEMPERATURE REASSESSMENT PATIENT TEMP 101.2. WILL MEDICATE PER MD ORDERS. WILL CONTINUE TO MONITOR
[2019-08-20] MEDS: ACETAMINOPHEN 500 MG TAB PO PRN ×2 (05:17→22:21)
[2019-08-20 05:22] VITALS: BP 108/60
--- NOTE | 2019-08-20 06:20 | NUR ---
TEMPERATURE REASSESSMENT PATIENT TEMP 100.4. COOLING MEASURES REMAIN IN PLACE. WILL CONTINUE TO MONITOR
[2019-08-20] MEDS: MORPHINE SULF INJ 2 MG/ML SYRINGE 1ML IV PRN ×2 (06:30→23:51)
[2019-08-20 08:28] LABS: Basophils # (auto) 0 10 ^3/uL (0-0.2); Basophils % (auto) 0.2 % (0.0-2.0); Eosinophils # (auto) 0.1 10 ^3/uL (0-0.8); Eosinophils % (auto) 1.2 % (0.0-7.0); Hematocrit 41.7 % (41.0-53.0); Hemoglobin 14.1 g/dL (13.5-17.5); Lymphocytes # (auto) 0.6 10 ^3/uL (0.4-5.4); Lymphocytes % (auto) 5.3 % (10.0-50.0); Mean Corpuscular Hemoglobin 31.4 pg (28.0-32.0); Mean Corpuscular Hgb Conc. 33.9 g/dL (32.0-36.0); Mean Corpuscular Volume 92.5 fL (80.0-100.0); Monocytes # (auto) 0.2 10 ^3/uL (0-1.3); Monocytes % (auto) 1.9 % (0.0-12.0); Neutrophils # (auto) 10.7 10 ^3/uL (1.6-8.6); Neutrophils % (auto) 91.4 % (37.0-80.0); Nucleated Red Blood Cells % 0.1 %; Platelet Count (auto) 286 10^3/uL (140-450); Red Cell Distribution Width 14.4 % (11.8-14.3); White Blood Cell 11.7 10^3/uL (4.4-10.8)
[2019-08-20 08:49] LABS: BUN/Creatinine Ratio 14.1; Calcium 8.6 mg/dL (8.5-10.1); Potassium 3.5 mmol/L (3.5-5.1)
[2019-08-20] MEDS: THIAMINE HCL 100 MG TAB PO SCH (08:52)
[2019-08-20] MEDS: MULTIPLE VITAMINS W/ MINERALS TAB PO SCH (08:52)
[2019-08-20] MEDS: FAMOTIDINE (10MG/ML) 2ML VL IV SCH ×2 (08:52→21:48)
[2019-08-20] MEDS: ENOXAPARIN SOD 40 MG/0.4 ML SYRINGE SC SCH (08:52)
[2019-08-20 09:32] VITALS: BP 100/60
--- NOTE | 2019-08-20 11:45 | NUR ---
MD ROUNDS DR MERAZ AT BEDSIDE DISCUSSING POC WITH PATIENT. NEW ORDERS RECEIVED/WILL CARRY OUT. WILL CONTINUE TO MONITOR
[2019-08-20] MEDS ORDERED: AZITHROMYCIN 500MG/ 250ML 250 ML IV ONE (12:30)
--- NOTE | 2019-08-20 13:01 | NUR ---
Est energy needs 3775-4990 kcal (30-33kcal/kg BW 62.8kg) est protein needs 50-63g (0.8-1g/kg BW 62.8kg) Will reassess prn. Addendum: 08/20/19 at [address] Amended: Links added.
[2019-08-20 13:33] VITALS: BP 115/68
[2019-08-20 17:09] VITALS: BP 101/57
--- NOTE | 2019-08-20 19:20 | NUR ---
Opening Shift Note Received report from Abby BARRAGAN. Assumed care of patient, awake and alert. No S/S of distress/SOB or pain. Instructed on POC and to call for assist PRN. Fall precaution measures in place, will continue to monitor for changes Q1hr and PRN.
[2019-08-20 22:00] VITALS: BP 115/68
--- NOTE | 2019-08-20 22:21 | NUR ---
Patient is febrile at 100.8 temperature, Tylenol PO given. Continue care
--- NOTE | 2019-08-20 23:51 | NUR ---
Complains of upper back pain at 08/26, Morphine IV given, continue care.
--- NOTE | 2019-08-20 23:52 | NUR ---
Patient's temp reassessed now 99.5, will continue to monitor.
[2019-08-21] MEDS: VANCOMYCIN 1GM/250ML 250 ML IV SCH ×4 (00:58→21:56)
--- NOTE | 2019-08-21 00:59 | NUR ---
Pain level 0/10, continue care.
[2019-08-21] MEDS: IPRATROPIUM BROM 0.5 MG/2.5ML INH SOL NEB SCH ×6 (02:13→22:04)
[2019-08-21] MEDS: ALBUTEROL SULF 2.5 MG/0.5ML(0.5%) NEB SOLN NEB SCH ×6 (02:13→22:04)
[2019-08-21] MEDS: PIPERACILLIN-TAZOB 3.375GM 100 ML IV SCH ×3 (05:45→17:24)
[2019-08-21 06:00] VITALS: BP 101/58
[2019-08-21] MEDS: ACETAMINOPHEN 500 MG TAB PO PRN ×2 (06:54→21:57)
--- NOTE | 2019-08-21 07:30 | NUR ---
Opening Shift Note Assumed care of patient, awake, alert, and oriented. No S/S of distress/SOB or pain. Bed in lowest/locked position, bed rails upx2, call light within reach. Instructed on POC and to call for assist PRN. Will continue to monitor for changes Q1hr and PRN.
--- NOTE | 2019-08-21 07:30 | NUR ---
TEMPERATURE PATIENT TEMPERATURE 101.5. NIGHT RN ADMINISTERED TYLENOL PRIOR TO MY SHIFT. EXTRA COOLING MEASURES IN PLACE. WILL REASSESS. WILL CONTINUE TO MONITOR
--- NOTE | 2019-08-21 08:00 | NUR ---
TEMPERATURE REASSESSMENT REASSESSED TEMP 99.0F. WILL CONTINUE TO MONITOR
[2019-08-21] MEDS: AZITHROMYCIN 500MG/ 250ML 250 ML IV SCH (08:33)
[2019-08-21] MEDS: THIAMINE HCL 100 MG TAB PO SCH (08:34)
[2019-08-21] MEDS: MULTIPLE VITAMINS W/ MINERALS TAB PO SCH (08:34)
[2019-08-21] MEDS: FAMOTIDINE (10MG/ML) 2ML VL IV SCH ×2 (08:34→21:56)
[2019-08-21] MEDS: ENOXAPARIN SOD 40 MG/0.4 ML SYRINGE SC SCH (08:35)
[2019-08-21 08:39] LABS: Basophils # (auto) 0 10 ^3/uL (0-0.2); Basophils % (auto) 0.1 % (0.0-2.0); Eosinophils # (auto) 0.1 10 ^3/uL (0-0.8); Eosinophils % (auto) 1.3 % (0.0-7.0); Hematocrit 43.9 % (41.0-53.0); Hemoglobin 14.9 g/dL (13.5-17.5); Lymphocytes # (auto) 0.4 10 ^3/uL (0.4-5.4); Lymphocytes % (auto) 3.2 % (10.0-50.0); Mean Corpuscular Hemoglobin 31.4 pg (28.0-32.0); Mean Corpuscular Volume 92.4 fL (80.0-100.0); Monocytes # (auto) 0.2 10 ^3/uL (0-1.3); Monocytes % (auto) 1.7 % (0.0-12.0); Neutrophils # (auto) 10.1 10 ^3/uL (1.6-8.6); Neutrophils % (auto) 93.7 % (37.0-80.0); Platelet Count (auto) 285 10^3/uL (140-450); Red Blood Cells 4.76 10^6/uL (4.5-5.90); White Blood Cell 10.8 10^3/uL (4.4-10.8)
[2019-08-21] MEDS: PROMETHAZINE W/CODEINE 5 ML ORAL SYRUP PO PRN ×2 (08:52→17:56)
[2019-08-21 08:56] LABS: BUN/Creatinine Ratio 11.1; Calcium 8.7 mg/dL (8.5-10.1); Potassium 3.8 mmol/L (3.5-5.1)
[2019-08-21 09:00] VITALS: BP 129/69
[2019-08-21] MEDS: SODIUM CHLORIDE 0.9% 1,000 ML IV SCH (10:22)
[2019-08-21] MEDS ORDERED: DEXTROSE (50%) 50ML SYRG IV PRN (12:30)
--- NOTE | 2019-08-21 12:30 | NUR ---
MD ROUNDS DR SANCHEZ AT BEDSIDE DISCUSSING POC WITH PATIENT. NO NEW ORDERS RECEIVED AT THIS TIME. WILL CONTINUE TO MONITOR
[2019-08-21 13:00] VITALS: BP 114/65
--- NOTE | 2019-08-21 13:10 | NUR ---
IV insertion IV access obtained, via clean sterile technique by inserting 22 gauge catheter at [facility] after 1 attempt. IV secured properly. No trauma to site. Patient tolerated well. IV removal IV DC'd with clean sterile technique, catheter fully intact. Pressure dressing applied to site. Patient tolerated well.
--- NOTE | 2019-08-21 15:54 | NUR ---
SHOWER SAID PATIENT OK TO SHOWER
[2019-08-21] MEDS: HYDROcodone-ACET 5/325MG TAB PO PRN ×2 (16:33→20:37)
[2019-08-21] MEDS: InsuLIN REG 1unit/0.01ml Soln (100units/ml) SC SCH ×2 (16:34→22:00)
[2019-08-21] MEDS: ACCU-CHEK COMFORT CURVE STRIP VI SCH ×2 (16:34→22:04)
[2019-08-21 17:00] VITALS: BP 116/67
[2019-08-21] MEDS: Glucerna Carbsteady SHAKE Vanilla 8oz PO SCH (17:24)
[2019-08-21] MEDS ORDERED: Ensure HIGH Protein Chocolate 8oz Bottle PO SCH (18:00)
--- NOTE | 2019-08-21 19:20 | NUR ---
Opening Shift Note Received report from Abby BARRAGAN. Assumed care of patient, awake and alert. No S/S of distress/SOB or pain. Instructed on POC and to call for assist PRN, will continue to monitor for changes Q1hr and PRN.
[2019-08-21 22:00] VITALS: BP 104/65
[2019-08-22] MEDS: PIPERACILLIN-TAZOB 3.375GM 100 ML IV SCH ×4 (00:03→17:27)
[2019-08-22] MEDS: PROMETHAZINE W/CODEINE 5 ML ORAL SYRUP PO PRN ×4 (00:04→18:23)
[2019-08-22] MEDS: MORPHINE SULF INJ 2 MG/ML SYRINGE 1ML IV PRN ×2 (00:05→14:10)
[2019-08-22] MEDS: IPRATROPIUM BROM 0.5 MG/2.5ML INH SOL NEB SCH ×6 (01:53→21:18)
[2019-08-22] MEDS: ALBUTEROL SULF 2.5 MG/0.5ML(0.5%) NEB SOLN NEB SCH ×6 (01:53→21:18)
[2019-08-22] MEDS: VANCOMYCIN 1GM/250ML 250 ML IV SCH ×4 (04:03→21:47)
[2019-08-22] MEDS: SODIUM CHLORIDE 0.9% 1,000 ML IV SCH ×2 (04:03→21:45)
[2019-08-22 05:00] VITALS: BP 108/74
[2019-08-22] MEDS: HYDROcodone-ACET 5/325MG TAB PO PRN ×2 (05:16→22:27)
[2019-08-22] MEDS: ACETAMINOPHEN 500 MG TAB PO PRN ×3 (06:33→22:27)
--- NOTE | 2019-08-22 06:33 | NUR ---
Temperature is 100.4, Tylenol PO given increased fluid intake encouraged.
[2019-08-22] MEDS: ACCU-CHEK COMFORT CURVE STRIP VI SCH ×4 (06:45→21:47)
[2019-08-22] MEDS: InsuLIN REG 1unit/0.01ml Soln (100units/ml) SC SCH ×4 (06:45→21:47)
[2019-08-22 06:58] LABS: Basophils # (auto) 0 10 ^3/uL (0-0.2); Basophils % (auto) 0.2 % (0.0-2.0); Eosinophils # (auto) 0.3 10 ^3/uL (0-0.8); Hematocrit 38.2 % (41.0-53.0); Lymphocytes # (auto) 0.6 10 ^3/uL (0.4-5.4); Lymphocytes % (auto) 5.3 % (10.0-50.0); Mean Corpuscular Hgb Conc. 33.9 g/dL (32.0-36.0); Mean Corpuscular Volume 91.4 fL (80.0-100.0); Monocytes # (auto) 0.2 10 ^3/uL (0-1.3); Neutrophils % (auto) 89.5 % (37.0-80.0); Platelet Count (auto) 324 10^3/uL (140-450); Red Blood Cells 4.18 10^6/uL (4.5-5.90); White Blood Cell 11.2 10^3/uL (4.4-10.8)
[2019-08-22 07:12] LABS: Potassium 3.7 mmol/L (3.5-5.1)
[2019-08-22 07:22] LABS: Calcium 8.3 mg/dL (8.5-10.1)
[2019-08-22 09:00] VITALS: BP 106/63
--- NOTE | 2019-08-22 09:42 | NUR ---
MISHEL HANNON TAKEN, TAKEN TO LAB BY GEETHA SOTO Addendum: 08/22/19 at 1817 by Lin Kasper RN [facility]- MISHEL SWAB
[2019-08-22] MEDS: FAMOTIDINE (10MG/ML) 2ML VL IV SCH ×2 (09:44→21:47)
[2019-08-22] MEDS: Glucerna Carbsteady SHAKE Vanilla 8oz PO SCH ×3 (09:44→17:28)
[2019-08-22] MEDS: THIAMINE HCL 100 MG TAB PO SCH (09:44)
[2019-08-22] MEDS: MULTIPLE VITAMINS W/ MINERALS TAB PO SCH (09:44)
[2019-08-22] MEDS: AZITHROMYCIN 500MG/ 250ML 250 ML IV SCH (09:44)
[2019-08-22] MEDS: ENOXAPARIN SOD 40 MG/0.4 ML SYRINGE SC SCH (09:45)
[2019-08-22 13:00] VITALS: BP 108/64
[2019-08-22 17:00] VITALS: BP 120/76
[2019-08-22 17:08] VITALS: BP 108/64
--- NOTE | 2019-08-22 18:18 | NUR ---
Called [facility] to check if covid swab was processed, line just kept ringing, no answer.
--- NOTE | 2019-08-22 18:50 | NUR ---
Patient informed of negative covid
--- NOTE | 2019-08-22 22:27 | NUR ---
Patient's temperature is 102.6, Tylenol PO given, continue care.
[2019-08-23] MEDS: PIPERACILLIN-TAZOB 3.375GM 100 ML IV SCH ×5 (00:06→23:46)
--- NOTE | 2019-08-23 00:07 | NUR ---
Latest temperature is 99.4, will continue to monitor.
[2019-08-23] MEDS: MORPHINE SULF INJ 2 MG/ML SYRINGE 1ML IV PRN ×4 (00:08→20:36)
[2019-08-23] MEDS: PROMETHAZINE W/CODEINE 5 ML ORAL SYRUP PO PRN (00:25)
[2019-08-23] MEDS: ALBUTEROL SULF 2.5 MG/0.5ML(0.5%) NEB SOLN NEB SCH ×6 (01:53→22:02)
[2019-08-23] MEDS: IPRATROPIUM BROM 0.5 MG/2.5ML INH SOL NEB SCH ×6 (01:53→22:02)
--- NOTE | 2019-08-23 02:01 | NUR ---
PT REQUESTED TO REMAIN SLEEPING FOR SCHEDULED 0200 MED NEB. WILL CONTINUE WITH NEXT SCHEDULED TX.
[2019-08-23 02:14] VITALS: BP 129/75
[2019-08-23] MEDS: VANCOMYCIN 1GM/250ML 250 ML IV SCH ×4 (04:26→22:41)
[2019-08-23] MEDS: HYDROcodone-ACET 5/325MG TAB PO PRN (05:45)
[2019-08-23 06:01] VITALS: BP 118/69
[2019-08-23] MEDS: InsuLIN REG 1unit/0.01ml Soln (100units/ml) SC SCH ×4 (06:45→22:43)
[2019-08-23] MEDS: ACCU-CHEK COMFORT CURVE STRIP VI SCH ×4 (06:45→22:42)
--- NOTE | 2019-08-23 07:30 | NUR ---
Opening Shift Note Assumed care of patient, awake and alert. A&Ox4. Patient was laying in bed. No S/S of distress or pain. Patient noted coughing intermittently. Safety measures maintained by keeping the bed in locked and in lowest position, 2 side rails up, items and call light within reach. Instructed on POC and to call for assist PRN, will continue to monitor for changes Q1hr and PRN.
[2019-08-23] MEDS: Glucerna Carbsteady SHAKE Vanilla 8oz PO SCH ×3 (08:00→17:59)
[2019-08-23 08:35] LABS: Basophils # (auto) 0 10 ^3/uL (0-0.2); Basophils % (auto) 0.2 % (0.0-2.0); Eosinophils # (auto) 0.3 10 ^3/uL (0-0.8); Eosinophils % (auto) 3.5 % (0.0-7.0); Hematocrit 40.2 % (41.0-53.0); Hemoglobin 13.6 g/dL (13.5-17.5); Lymphocytes # (auto) 0.7 10 ^3/uL (0.4-5.4); Lymphocytes % (auto) 7.2 % (10.0-50.0); Mean Corpuscular Hemoglobin 31.1 pg (28.0-32.0); Mean Corpuscular Hgb Conc. 33.9 g/dL (32.0-36.0); Mean Corpuscular Volume 91.7 fL (80.0-100.0); Monocytes # (auto) 0.3 10 ^3/uL (0-1.3); Monocytes % (auto) 2.7 % (0.0-12.0); Neutrophils % (auto) 86.4 % (37.0-80.0); Nucleated Red Blood Cells % 0.1 %; Platelet Count (auto) 374 10^3/uL (140-450); Red Blood Cells 4.38 10^6/uL (4.5-5.90); Red Cell Distribution Width 14.4 % (11.8-14.3); White Blood Cell 9.3 10^3/uL (4.4-10.8)
[2019-08-23 08:59] LABS: Potassium 3.8 mmol/L (3.5-5.1)
[2019-08-23 09:00] VITALS: BP 104/54
[2019-08-23 09:18] LABS: BUN/Creatinine Ratio 13.5; Calcium 8.4 mg/dL (8.5-10.1)
[2019-08-23] MEDS: MULTIPLE VITAMINS W/ MINERALS TAB PO SCH (09:46)
[2019-08-23] MEDS: THIAMINE HCL 100 MG TAB PO SCH (09:46)
[2019-08-23] MEDS: ENOXAPARIN SOD 40 MG/0.4 ML SYRINGE SC SCH (09:47)
[2019-08-23] MEDS: FAMOTIDINE (10MG/ML) 2ML VL IV SCH ×2 (09:47→22:41)
[2019-08-23] MEDS: AZITHROMYCIN 500MG/ 250ML 250 ML IV SCH (09:48)
[2019-08-23] MEDS ORDERED: methylPREDNISolone SOD SUCC 125 MG/2 ML VL IV SCH (11:30)
[2019-08-23] MEDS: ACETAMINOPHEN 500 MG TAB PO PRN (12:03)
[2019-08-23] MEDS: SODIUM CHLORIDE 0.9% 1,000 ML IV SCH (12:49)
[2019-08-23 13:00] VITALS: BP 105/61
--- NOTE | 2019-08-23 15:13 | NUR ---
Nutrition Followup Note Wt 62.0kg Pt was resting in room at time of rounds. Pt with adequate po intake aeb pt with 100% po intake x2 days per Rn note, pt also receiving Glucerna TID Est energy needs 7375-9349 kcal (30-33kcal/kg BW 62.8kg) est protein needs 50-63g (0.8-1g/kg BW 62.8kg) Will reassess prn. Labs: Ca 8.4L, Alb 2.7L BM: None noted per Rn doc Skin: BS 21 low risk full details in foster care worker doc. PES: partially Resolved: pt with adequate intake aeb 100% intake when Rn records intake. Inadequate oral intake r/t current medical condition aeb pt with 44% po intake during time in hospital per Rn doc Comments 1) Continue to monitor po intake, labs, skin, 2) refer pt to [facility] on DC 3) Continue current plan of care Consider regular diet, pt does not have hx of DM noted, a1C is in normal range Expected Outcomes/Goals: 1) Pt po intake >75% 2) pt to maintain wt while in hospital 3) F/u 3-5 days
[2019-08-23 17:00] VITALS: BP 111/70
--- NOTE | 2019-08-23 17:00 | NUR ---
SOLUMEDROL NOTES PATIENT REPORTED FEELING SHAKY AFTER SOLUMEDROL ADMINISTRATION. PT ALSO REPORTED FEELING OF HALLUCINATION. PER PT, HE DOESN'T WANT TO TAKE THE MEDICATION AGAIN.
--- NOTE | 2019-08-23 19:45 | NUR ---
Opening Shift Note Assumed care of patient, awake and alert. No S/S of distress/SOB. Instructed on POC and to call for assist PRN, patient verbalized understanding. Safety precaution in place, call light within reach, will continue to monitor for changes Q1hr and PRN.
[2019-08-23 22:00] VITALS: BP 118/74
[2019-08-23] MEDS: methylPREDNISolone SOD SUCC 40 MG/ML VL IV SCH (22:00)
[2019-08-24] MEDS: PROMETHAZINE W/CODEINE 5 ML ORAL SYRUP PO PRN ×2 (00:25→16:45)
[2019-08-24] MEDS: MORPHINE SULF INJ 2 MG/ML SYRINGE 1ML IV PRN ×5 (00:25→22:51)
[2019-08-24] MEDS: IPRATROPIUM BROM 0.5 MG/2.5ML INH SOL NEB SCH ×6 (02:25→21:52)
[2019-08-24] MEDS: ALBUTEROL SULF 2.5 MG/0.5ML(0.5%) NEB SOLN NEB SCH ×6 (02:26→21:52)
[2019-08-24] MEDS: VANCOMYCIN 1GM/250ML 250 ML IV SCH ×4 (03:54→21:51)
[2019-08-24 05:00] VITALS: BP 112/72
[2019-08-24] MEDS: PIPERACILLIN-TAZOB 3.375GM 100 ML IV SCH ×3 (05:39→18:31)
[2019-08-24] MEDS: ACCU-CHEK COMFORT CURVE STRIP VI SCH ×4 (05:39→22:16)
[2019-08-24] MEDS: InsuLIN REG 1unit/0.01ml Soln (100units/ml) SC SCH ×4 (05:46→22:17)
[2019-08-24] MEDS: SODIUM CHLORIDE 0.9% 1,000 ML IV SCH (07:54)
[2019-08-24] MEDS: Glucerna Carbsteady SHAKE Vanilla 8oz PO SCH ×3 (07:54→18:31)
[2019-08-24 09:26] VITALS: BP 102/69
[2019-08-24] MEDS: FAMOTIDINE (10MG/ML) 2ML VL IV SCH ×2 (09:37→21:51)
[2019-08-24] MEDS: MULTIPLE VITAMINS W/ MINERALS TAB PO SCH (09:38)
[2019-08-24] MEDS: methylPREDNISolone SOD SUCC 40 MG/ML VL IV SCH (09:38)
[2019-08-24] MEDS: ENOXAPARIN SOD 40 MG/0.4 ML SYRINGE SC SCH (09:38)
[2019-08-24] MEDS: AZITHROMYCIN 500MG/ 250ML 250 ML IV SCH (09:38)
[2019-08-24] MEDS: THIAMINE HCL 100 MG TAB PO SCH (09:38)
[2019-08-24] MEDS ORDERED: predniSONE 20 MG TAB PO ONE (11:00)
[2019-08-24 12:23] VITALS: BP 115/76
--- NOTE | 2019-08-24 16:20 | NUR ---
assessment Patient has no post discharge needs identified. Addendum: 08/24/19 at 1620 by Arianna BLAIR Amended: Links added.
[2019-08-24 16:56] VITALS: BP 119/69
[2019-08-24 22:00] VITALS: BP 130/74
[2019-08-25] MEDS: PIPERACILLIN-TAZOB 3.375GM 100 ML IV SCH ×5 (00:15→23:24)
[2019-08-25] MEDS: IPRATROPIUM BROM 0.5 MG/2.5ML INH SOL NEB SCH ×8 (01:38→23:28)
[2019-08-25] MEDS: ALBUTEROL SULF 2.5 MG/0.5ML(0.5%) NEB SOLN NEB SCH ×8 (01:38→23:29)
[2019-08-25] MEDS: VANCOMYCIN 1GM/250ML 250 ML IV SCH ×2 (03:41→10:19)
[2019-08-25] MEDS: MORPHINE SULF INJ 2 MG/ML SYRINGE 1ML IV PRN ×2 (04:17→20:30)
--- NOTE | 2019-08-25 04:17 | NUR ---
IV removal 22 gauge IV to left forearm DC'd with sterile technique, catheter fully intact. Pressure dressing applied to site. Patient tolerated procedure well.
[2019-08-25 05:00] VITALS: BP 106/71
[2019-08-25] MEDS: InsuLIN REG 1unit/0.01ml Soln (100units/ml) SC SCH ×4 (06:53→22:00)
[2019-08-25] MEDS: ACCU-CHEK COMFORT CURVE STRIP VI SCH ×4 (06:53→22:48)
[2019-08-25] MEDS: Glucerna Carbsteady SHAKE Vanilla 8oz PO SCH ×3 (07:45→17:50)
[2019-08-25 08:25] VITALS: BP 115/63
[2019-08-25] MEDS: predniSONE 20 MG TAB PO SCH (10:00)
[2019-08-25] MEDS: THIAMINE HCL 100 MG TAB PO SCH (10:19)
[2019-08-25] MEDS: FAMOTIDINE (10MG/ML) 2ML VL IV SCH (10:19)
[2019-08-25] MEDS: AZITHROMYCIN 500MG/ 250ML 250 ML IV SCH (10:19)
[2019-08-25] MEDS: ENOXAPARIN SOD 40 MG/0.4 ML SYRINGE SC SCH (10:20)
[2019-08-25] MEDS: MULTIPLE VITAMINS W/ MINERALS TAB PO SCH (10:20)
[2019-08-25] MEDS: ACETAMINOPHEN 500 MG TAB PO PRN (10:20)
--- NOTE | 2019-08-25 11:05 | NUR ---
Respiratory note: Pt refused medneb tx, says he was about to take a nap right now. HR 78, RR 16, SPO2 99% on room air. Breath sounds clear/dim, no s/s of distress. Will return for next scheduled tx. Pt aware to call for RT if needed.
[2019-08-25 11:18] LABS: BUN/Creatinine Ratio 21.4; Calcium 9.1 mg/dL (8.5-10.1); Potassium 3.8 mmol/L (3.5-5.1)
[2019-08-25 12:04] VITALS: BP 105/72
[2019-08-25 12:10] VITALS: BP 105/72
[2019-08-25] MEDS: PROMETHAZINE W/CODEINE 5 ML ORAL SYRUP PO PRN (12:40)
--- NOTE | 2019-08-25 14:45 | NUR ---
Respiratory note: Scheduled medneb tx not given, pt request to skip tx, wants to sleep. No s/s of distress noted.
[2019-08-25 16:51] VITALS: BP 125/73
--- NOTE | 2019-08-25 19:40 | NUR ---
Opening Shift Note Assumed care of patient, awake and alert. No S/S of distress/SOB or pain. Instructed on POC and to call for assist PRN, patient verbalized understanding, call light within reach, will continue to monitor for changes Q1hr and PRN.
--- NOTE | 2019-08-25 23:29 | NUR ---
Respiratory note: PT REFUSE MED NEB FOR 020
[2019-08-26] VITALS (8 sets, daily range): BP systolic 101–122; BP diastolic 58–78
[2019-08-26] MEDS: ACCU-CHEK COMFORT CURVE STRIP VI SCH ×2 (06:32→12:27)
[2019-08-26] MEDS: PIPERACILLIN-TAZOB 3.375GM 100 ML IV SCH ×2 (06:32→12:00)
[2019-08-26] MEDS: InsuLIN REG 1unit/0.01ml Soln (100units/ml) SC SCH ×2 (06:33→11:30)
[2019-08-26] MEDS: IPRATROPIUM BROM 0.5 MG/2.5ML INH SOL NEB SCH ×2 (06:45→10:28)
[2019-08-26] MEDS: ALBUTEROL SULF 2.5 MG/0.5ML(0.5%) NEB SOLN NEB SCH ×2 (06:45→10:28)
[2019-08-26 07:34] LABS: Basophils # (auto) 0 10 ^3/uL (0-0.2); Hemoglobin 13.7 g/dL (13.5-17.5); Lymphocytes # (auto) 1.3 10 ^3/uL (0.4-5.4); Monocytes # (auto) 0.5 10 ^3/uL (0-1.3); Neutrophils # (auto) 5.6 10 ^3/uL (1.6-8.6)
[2019-08-26 07:36] LABS: Basophils % (auto) 0.2 % (0.0-2.0); Eosinophils # (auto) 0.1 10 ^3/uL (0-0.8); Eosinophils % (auto) 1.8 % (0.0-7.0); Lymphocytes % (auto) 17.2 % (10.0-50.0); Mean Corpuscular Hemoglobin 30.6 pg (28.0-32.0); Mean Corpuscular Hgb Conc. 33.3 g/dL (32.0-36.0); Mean Corpuscular Volume 91.9 fL (80.0-100.0); Monocytes % (auto) 6.5 % (0.0-12.0); Neutrophils % (auto) 74.3 % (37.0-80.0); Nucleated Red Blood Cells % 0.1 %; Platelet Count (auto) 493 10^3/uL (140-450); Red Blood Cells 4.46 10^6/uL (4.5-5.90); Red Cell Distribution Width 14.2 % (11.8-14.3); White Blood Cell 7.5 10^3/uL (4.4-10.8)
[2019-08-26] MEDS: Glucerna Carbsteady SHAKE Vanilla 8oz PO SCH ×2 (08:40→12:28)
[2019-08-26] MEDS ORDERED: AZITHROMYCIN 250 MG TAB PO SCH (10:00)
[2019-08-26] MEDS ORDERED: PANTOPRAZOLE 40 MG TAB PO SCH (10:00)
[2019-08-26] MEDS: predniSONE 20 MG TAB PO SCH ×2 (10:00→10:29)
[2019-08-26] MEDS: ENOXAPARIN SOD 40 MG/0.4 ML SYRINGE SC SCH (10:00)
--- NOTE | 2019-08-26 10:25 | NUR ---
Dr. Malik at bedside. to discharge the patient today. Dr. Malik ordered not to give Lovenox SC, patient is ambulatory, patient can take a shower. Patient said his will pick him up after lunch today.
[2019-08-26] MEDS: MULTIPLE VITAMINS W/ MINERALS TAB PO SCH (10:29)
[2019-08-26] MEDS: THIAMINE HCL 100 MG TAB PO SCH ×2 (10:29→10:33)
--- NOTE | 2019-08-26 10:30 | NUR ---
Patient refused Prednisone. Risks and benefits explained, patient stated Prednisone makes him feel he has ringing in the ears. Respiratory Therapist also encouraged the patient to take the Prednisone but patient still refused. Wasted the Prednisone in the Med room.
[2019-08-26] MEDS ORDERED: METH4PAK PO (11:23)
[2019-08-26] MEDS ORDERED: LEVO750T8 PO (11:23)
--- NOTE | 2019-08-26 14:45 | NUR ---
Discharge instructions given as ordered. Encourage to follow up with PMD as instructed. All questions and concerns addressed. Patient verbalized understanding. Medication reconciliation form completed and copy given to patient. IV removed with catheter intact, pressure dressing applied. Telemetry unit returned to ICU. Patient is ambulatory, steady gait noted, refused to be taken to vehicle via wheelchair, patient with all personal belongings, family member waiting at the main lobby No distress noted at time of departure.
== END 2019-08-26 14:45 | disposition home or self-care (01) | DRG 720 ==
LOC: EDBD 15:55 → ER 15:55 → TELE 15:56 → TELE-EAST 20:47 → TELE-CENTR 08-17 02:20 → TELE-EAST 08-17 11:14
PROVIDERS: ADMIT Hospitalist; ATTEND Internal Medicine
DX: A41.9 Sepsis, unspecified organism (principal); J96.01 Acute respiratory failure with hypoxia; I85.10 Secondary esophageal varices without bleeding; J18.9 Pneumonia, unspecified organism; K76.6 Portal hypertension; K70.30 Alcoholic cirrhosis of liver without ascites; F10.239 Alcohol dependence with withdrawal, unspecified; K20.9 Esophagitis, unspecified; E88.09 Other disorders of plasma-protein metabolism, not elsewhere classified; J45.901 Unspecified asthma with (acute) exacerbation; K29.20 Alcoholic gastritis without bleeding; K86.1 Other chronic pancreatitis; J98.11 Atelectasis; B19.10 Unspecified viral hepatitis B without hepatic coma; F17.210 Nicotine dependence, cigarettes, uncomplicated; Z83.3 Family history of diabetes mellitus; Z82.49 Family history of ischemic heart disease and other diseases of the circulatory system; Z80.42 Family history of malignant neoplasm of prostate; Z80.3 Family history of malignant neoplasm of breast; Z80.8 Family history of malignant neoplasm of other organs or systems; Z85.3 Personal history of malignant neoplasm of breast; Z20.828 Contact with and (suspected) exposure to other viral communicable diseases
CPT/HCPCS: 36415; 36600; 71045; 71275; 78582; 80048; 80053; 80061; 80076; 80202; 80307; 82565; 82728; 82805; 82962; 83036; 83605; 83615; 83735; 84100; 84443; 84484; 85007; 85025; 85027; 85379; 85610; 85730; 86141; 86703; 86704; 86706; 86708; 86803; 87040; 87070; 87205; 87340; 93005; 93306; 93970; 94640; C9113; G0378; J1100; J1815; J2405; J2543; J3490

== ENCOUNTER 2020-01-14 15:12 | Emergency (ER) | payer MEDICAID ==
[~2020-01-14 15:12] MED LIST: LEVO750T8 PO; METH4PAK PO
== END 2020-01-14 19:25 | disposition left against medical advice (07) ==
LOC: ER 15:12
DX: R06.02 Shortness of breath (principal); Z53.21 Procedure and treatment not carried out due to patient leaving prior to being seen by health care provider

== ENCOUNTER 2020-06-10 17:45 | Emergency (ER) | payer MEDICAID ==
[~2020-06-10] VITALS: Ht 170.2 cm; Wt 68.0 kg
[2020-06-10 17:46] VITALS: BP 134/74
[2020-06-10 19:01] LABS: Albumin 4.3 g/dL (3.4-5.0); Anion Gap 6 (5-15); Blood Urea Nitrogen 10 mg/dL (7-18); Calcium 8.6 mg/dL (8.5-10.1); Carbon Dioxide 25 mmol/L (21-32); Chloride 108 mmol/L (98-107); GFR African American 121 mL/min; GFR Non-African American 100 mL/min; Glucose 90 mg/dL (74-106); Sodium 139 mmol/L (136-145)
[2020-06-10 19:07] LABS: Basophils # (auto) 0 10 ^3/uL (0-0.2); Basophils % (auto) 0.4 % (0.0-2.0); Eosinophils # (auto) 0.3 10 ^3/uL (0-0.8); Monocytes # (auto) 0.7 10 ^3/uL (0-1.3); Neutrophils # (auto) 4.8 10 ^3/uL (1.6-8.6)
[2020-06-10 19:10] LABS: Eosinophils % (auto) 3.3 % (0.0-7.0); Hematocrit 51.6 % (41.0-53.0); Hemoglobin 18.2 g/dL (13.5-17.5); Lymphocytes # (auto) 2.7 10 ^3/uL (0.4-5.4); Lymphocytes % (auto) 31.9 % (10.0-50.0); Mean Corpuscular Hemoglobin 31.7 pg (28.0-32.0); Mean Corpuscular Hgb Conc. 35.3 g/dL (32.0-36.0); Mean Corpuscular Volume 89.9 fL (80.0-100.0); Monocytes % (auto) 8.4 % (0.0-12.0); Nucleated Red Blood Cells % 1.1 %; Platelet Count (auto) 236 10^3/uL (140-450); Red Blood Cells 5.74 10^6/uL (4.5-5.90); Red Cell Distribution Width 13.5 % (11.8-14.3); White Blood Cell 8.6 10^3/uL (4.4-10.8)
[2020-06-10 19:18] LABS: Alanine Aminotransferase 19 U/L (16-61); Alkaline Phosphatase 78 U/L (45-117); Aspartate Aminotransferase 16 U/L (15-37); Bilirubin, Total 0.9 mg/dL (0.2-1.0)
== END 2020-06-10 20:54 | disposition left against medical advice (07) ==
LOC: ER 17:45
DX: R07.89 Other chest pain (principal); Z53.21 Procedure and treatment not carried out due to patient leaving prior to being seen by health care provider
CPT/HCPCS: 36415; 71045; 80053; 84443; 84484; 85025

== ENCOUNTER 2021-08-02 14:30 | Emergency (ER) | payer MEDICAID ==
[~2021-08-02] VITALS: Ht 170.2 cm; Wt 63.5 kg
[2021-08-02 14:57] VITALS: BP 137/92
[2021-08-02 16:03] LABS: Basophils # (auto) 0.1 10 ^3/uL (0-0.2); Basophils % (auto) 1.7 % (0.0-2.0); Eosinophils # (auto) 0.4 10 ^3/uL (0-0.8); Eosinophils % (auto) 5.6 % (0.0-7.0); Hematocrit 44.6 % (41.0-53.0); Hemoglobin 15.8 g/dL (13.5-17.5); Lymphocytes # (auto) 1.7 10 ^3/uL (0.4-5.4); Lymphocytes % (auto) 26.4 % (10.0-50.0); Mean Corpuscular Hemoglobin 31.4 pg (28.0-32.0); Mean Corpuscular Hgb Conc. 35.4 g/dL (32.0-36.0); Mean Corpuscular Volume 88.8 fL (80.0-100.0); Monocytes # (auto) 0.4 10 ^3/uL (0-1.3); Monocytes % (auto) 6.9 % (0.0-12.0); Neutrophils # (auto) 3.8 10 ^3/uL (1.6-8.6); Neutrophils % (auto) 59.4 % (37.0-80.0); Nucleated Red Blood Cells % 0.1 %; Red Blood Cells 5.02 10^6/uL (4.5-5.90); Red Cell Distribution Width 12.9 % (11.8-14.3); White Blood Cell 6.4 10^3/uL (4.4-10.8)
[2021-08-02 16:23] LABS: Albumin 3.8 g/dL (3.4-5.0); Calcium 8.3 mg/dL (8.5-10.1); Magnesium 2.3 mg/dL (1.6-2.6); Potassium 3.8 mmol/L (3.5-5.1)
[2021-08-02 16:26] LABS: BUN/Creatinine Ratio 8.2; Bilirubin, Total 0.7 mg/dL (0.2-1.0); Total Protein 7.5 g/dL (6.4-8.2)
[2021-08-02 16:39] LABS: INR 1.06 (0.9-1.15); Partial Thromboplastin Time 26.9 sec (23.6-33.0)
[2021-08-02] MEDS ORDERED: PANT40TA2 PO (16:53)
== END 2021-08-02 18:01 | disposition home or self-care (01) ==
LOC: ER 14:30
DX: K29.70 Gastritis, unspecified, without bleeding (principal); F17.210 Nicotine dependence, cigarettes, uncomplicated; Z79.2 Long term (current) use of antibiotics; Z79.899 Other long term (current) drug therapy
CPT/HCPCS: 36415; 74176; 80053; 83735; 85025; 85610; 85730; 86850; 86900; 86901

== ENCOUNTER 2022-02-19 10:24 | Emergency (ER) | payer MEDICAID ==
[~2022-02-19] VITALS: Ht 170.2 cm; Wt 62.5 kg
[~2022-02-19 10:24] MED LIST changes: +PANT40TA2 PO
[2022-02-19 14:14] VITALS: BP 123/86
[2022-02-19 15:03] LABS: Albumin 4.1 g/dL (3.4-5.0); Calcium 8.8 mg/dL (8.5-10.1); Potassium 4.1 mmol/L (3.5-5.1)
[2022-02-19 15:05] LABS: BUN/Creatinine Ratio 15.4
[2022-02-19 15:08] LABS: Bilirubin, Total 0.7 mg/dL (0.2-1.0); Total Protein 7.6 g/dL (6.4-8.2)
[2022-02-19 16:02] LABS: Basophils # (auto) 0 10 ^3/uL (0-0.2); Basophils % (auto) 0.5 % (0.0-2.0); Eosinophils # (auto) 0.7 10 ^3/uL (0-0.8); Eosinophils % (auto) 10.3 % (0.0-7.0); Hematocrit 49.1 % (41.0-53.0); Hemoglobin 17.1 g/dL (13.5-17.5); Lymphocytes % (auto) 28.3 % (10.0-50.0); Mean Corpuscular Hgb Conc. 34.9 g/dL (32.0-36.0); Mean Corpuscular Volume 88.8 fL (80.0-100.0); Monocytes # (auto) 0.8 10 ^3/uL (0-1.3); Neutrophils # (auto) 3.4 10 ^3/uL (1.6-8.6); Neutrophils % (auto) 48.9 % (37.0-80.0); Nucleated Red Blood Cells % 0.1 %; Red Blood Cells 5.53 10^6/uL (4.5-5.90); White Blood Cell 6.9 10^3/uL (4.4-10.8)
[2022-02-19] MEDS ORDERED: ALBU108A5 IN (16:10)
[2022-02-19] MEDS ORDERED: ACET1CAP14 PO (16:10)
[2022-02-19] MEDS ORDERED: PROM1SOL4 PO (16:11)
== END 2022-02-19 16:22 | disposition home or self-care (01) ==
LOC: ER 10:24
DX: U07.1 COVID-19 (principal); R07.89 Other chest pain; F17.210 Nicotine dependence, cigarettes, uncomplicated; F10.90 Alcohol use, unspecified, uncomplicated; F12.90 Cannabis use, unspecified, uncomplicated; Z88.8 Allergy status to other drugs, medicaments and biological substances; Z79.899 Other long term (current) drug therapy
CPT/HCPCS: 36415; 71045; 80053; 83690; 84484; 85025; 87426; 87804; 93005

== ENCOUNTER 2024-07-05 17:01 | Emergency (ER) | payer MEDICAID ==
[~2024-07-05] VITALS: Ht 170.2 cm; Wt 68.3 kg
[~2024-07-05 17:01] MED LIST changes: +ACET1CAP14 PO; +ALBU108A5 IN; +PROM1SOL4 PO
[2024-07-05 17:32] LABS: Urine Bacteria None Seen /hpf (None Seen)
[2024-07-05 17:42] LABS: Urine Amorphous Crystal FEW /hpf (None Seen); Urine Blood Negative /uL (Negative); Urine Clarity Turbid (Clear); Urine Color Yellow (Yellow); Urine Mucus FEW (None Seen); Urine Protein, UAD Negative (Negative); Urine Specific Gravity 1.026 (1.001-1.035); Urine Squamous Epithelial Cell FEW /hpf (<5); Urine Urobilinogen Normal (Negative); Urine WBC < 1 /HPF (0-3); Urine pH 6.5 (5.0-9.0)
--- NOTE | 2024-07-05 18:20 | DVH ---
EXAM: CT Abdomen and Pelvis Without Intravenous Contrast CLINICAL INDICATION: epigastric pain, history of pancreatitis TECHNIQUE: Axial computed tomography images of the abdomen and pelvis without intravenous contrast. This CT exam was performed using one or more of the following dose reduction techniques: automated exposure control, adjustment of the mA and/or kV according to patient size, and/or use of iterative r econstruction technique. CONTRAST: COMPARISON: None FINDINGS: LUNG BASES: Unremarkable. No mass. No consolidation. ABDOMEN: LIVER: Fatty infiltration of the liver. GALLBLADDER AND BILE DUCTS: Unremarkable. No calcified stones. No ductal dilation. PANCREAS: Unremarkable. No ductal dilation. No CT evidence of acute pancreatitis. No pseudocyst o r perforation. No abscess. SPLEEN: Unremarkable. No splenomegaly. ADRENALS: Unremarkable. No mass. KIDNEYS AND URETERS: Unremarkable. No stones within either kidney. No hydronephrosis. STOMACH AND BOWEL: Unremarkable. No obstruction. No mucosal thickening. PELVIS: APPENDIX: No findings to suggest acute appendicitis. BLADDER: Unremarkable. No stones. REPRODUCTIVE: Unremarkable as visualized. ABDOMEN and PELVIS: INTRAPERITONEAL SPACE: Unremarkable. No free air. No significant fluid collection. BONES/JOINTS: No acute fracture. No dislocation. SOFT TISSUES: Umbilical hernia containing fat. VASCULATURE: Unremarkable. No abdominal aortic aneurysm. LYMPH NODES: Unremarkable. No enlarged lymph nodes. OTHER FINDINGS: . . . IMPRESSION: 1. No CT evidence of acute pancreatitis. No pseudocyst or perforation. No abscess. 2. Umbilical hernia containing fat. 3. No obstructive uropathy.
--- NOTE | 2024-07-05 18:34 | ED.PDOC ---
GI ASSESSMENT HPI Comments 43 y/o M, with PMHx of ETOH abuse and esophageal varices presents to the ED for CC of abdominal pain. Patient states, he has been experiencing epigastric abdominal pain that radiates to his back onset, last night (07/04/24). Patient reports, that he use to drink heavily however stopped d/t stage four liver disease; endorses last drink to be x3-4 weeks ago. Patient denies nausea, vomiting, or diarrhea. No other symptoms or modifying factors present at this time. Chief Complaint: Abdominal Pain Time Seen by MD: 18:05 Primary Care Provider: none Reviewed Notes: Nurses Notes, Medications, Allergies Allergies: Coded Allergies: Diphenhydramine (Verified Allergy, Unknown, 09/04/17) Home Meds Active Scripts Promethazine-Dm (Promethazine Dm 6.25-15 mg/5Ml) 1 Ani Ani, 5 ML PO Q4HPRN PRN, #120 ML 0 Refills Prov:MIO FOURNIER [facility] 02/19/22 Acetaminophen (Tylenol) 325 Mg Cap, 325 MG PO Q4HPRN PRN, #30 CAP 0 Refills take 1-2 caps PO q4h prn Prov:MIO FOURNIER [facility] 02/19/22 Albuterol Sulfate (Albuterol Sulfate Hfa) 108 Mcg/Act Aer, 2 PUFF IN Q4HPRN PRN, #1 INHALER 0 Refills Prov:MIO FOURNIER [facility] 02/19/22 Pantoprazole Sodium Sesquihydr (Protonix) 40 Mg Tab, 40 MG PO DAILY, #30 TAB Prov:BETY DUMAS MD 08/02/21 Methylprednisolone (Medrol Dosepak) 4 Mg Kishore, 4 MG PO UD, #21 TAB UAD Prov:JUANITA MILLER MD 08/26/19 Levofloxacin (Levaquin 750 mg) 750 Mg Tab, 1 TAB PO DAILY, #7 TAB Prov:JUANITA MILLER MD 08/26/19 Information Source: Patient Mode of Arrival: Ambulatory Timing: Hours Duration: Since onset Prehospital treatment: None Quality: None Vomitus: None Stool: Normal Severity: Moderate Recent: Ingestion of ETOH Recent Hx of: None Pain Location: Epigastric Modifying Factors: Nothing Associated sign and symptoms: None Past Medical History Past Medical History (Other): esophageal varacies Surgical History: Denies all surgeries Family History Family History: Family hx of DM, Family hx of Cancer, Family hx of HTN Social History Smoker: Cigarettes, Less Than 1 Pack/Day Alcohol: Heavy, Sober Drugs: Marijuana Lives In: Home Constitutional: denies: chills, diaphoresis, fatigue, fever, malaise, sweats, weakness, others EENTM: denies: blurred vision, double vision, ear bleeding, ear discharge, ear drainage, ear pain, ear ringing, eye pain, eye redness, hearing loss, mouth pain, mouth swelling, nasal discharge, nose bleeding, nose congestion, nose pain, photophobia, tearing, throat pain, throat swelling, voice changes, others Respiratory: denies: cough, hemoptysis, orthopnea, SOB at rest, shortness of breath, SOB with excertion, stridor, wheezing, others Cardiovascular: denies: chest pain, dizzy spells, diaphoresis, Dyspnea on exertion, edema, irregular heart beat, left arm pain, lightheadedness, palpitations, PND, syncope, others Gastrointestinal: reports: abdominal pain; denies: abdomen distended, blood streaked bowels, constipated, diarrhea, dysphagia, difficulty swallowing, hematemesis, melena, nausea, poor appetite, poor fluid intake, rectal bleeding, rectal pain, vomiting, others Genitourinary: denies: burning, dysuria, flank pain, frequency, hematuria, incontinence, penile discharge, penile sore, pain, testicle pain, testicle swelling, urgency, others Neurological: denies: dizziness, fainting, headache, left sided numbness, left sided weakness, numbness, paresthesia, pre-existing deficit, right sided numbness, right sided weakness, seizure, speech problems, tingling, tremors, weakness, others Musculoskeletal: denies: back pain, gout, joint pain, joint swelling, muscle pain, muscle stiffness, neck pain, others Integumetry: denies: bruises, change in color, change in hair/nails, dryness, laceration, lesions, lumps, rash, wounds, others Allergic/Immunocompromised: denies: Difficulty Healing, Frequent Infections, Hives, Itching, others Hematologic/Lymphatic: denies: anemia, blood clots, easy bleeding, easy bruising, swollen glands, others Endocrine: denies: excessive hunger, excessive sweating, excessive thirst, excessive urination, flushing, intolerance to cold, intolerance to heat, unexplained weight gain, unexplained weight loss, others Psychiatric: denies: anxiety, bipolar disorder, depression, hopeless, panic disorder, schizophrenia, sleepless, suicidal, others All Other Systems: Reviewed and Negative Physical Exam General Appearance: No Apparent Distress, Normal HEENT: Normal ENT Inspection, Pharynx Normal Neck: Full Range of Motion, Non-Tender, Normal, Normal Inspection Respiratory: Chest Non-Tender, Lungs Clear, No Accessory Muscle Use, No Respiratory Distress, Normal Breath Sounds Cardiovascular: No Edema, No Murmur, No Gallop, Normal Peripheral Pulses, Regular Rate/Rhythm Breast Exam: Deferred Gastrointestinal: No Organomegaly, Non Tender, No Pulsatile Mass, Normal Bowel Sounds, Soft Genitalia: Deferred Pelvic: Deferred Rectal: Deferred Extremities: No calf tenderness, Normal capillary refill, Normal inspection, Normal range of motion, Non-tender, No pedal edema Musculoskeletal : Apperance: Normal Neurologic: Alert, broadcast engineer II-XII nml as Tested, No Motor Deficits, Normal Affect, Normal Mood, No Sensory Deficits Cerebellar Function: Normal Reflexes: Normal Skin: Dry, Normal Color, Warm Lymphatic: No Adenopathy Was a procedure done? Was a procedure done?: No GI differential Dx Differential Diagnosis: Appendicitis, Bowel Obstruction, Constipation, Esophagitis, Gastritis/PUD, Gastroenteritis, Hernia, Hepatitis, Pancreatitis, Electrolyte Imbalance, Food Poisoning, Bacterial, Viral, Impaction, Stress Ulcer X-Ray, Labs, Meds, VS Vital Signs Date Time Temp Pulse Resp B/P (MAP) Pulse Ox O2 Delivery O2 Flow Rate FiO2 07/05/24 17:21 98.2 84 17 123/83 (96) 96 98.2 Lab Test 07/05/24 18:08 07/05/24 17:30 Range/Units White Blood Count 8.9 4.4-10.8 10^3/uL Red Blood Count 5.64 4.5-5.90 10^6/uL Hemoglobin 17.2 13.5-17.5 g/dL Hematocrit 48.8 41.0-53.0 % Mean Corpuscular Volume 86.4 80.0-100.0 fL Mean Corpuscular Hemoglobin 30.5 28.0-32.0 pg Mean Corpuscular Hemoglobin Concent 35.3 32.0-36.0 g/dL Red Cell Distribution Width 13.6 11.8-14.3 % Platelet Count 234 140-450 10^3/uL Mean Platelet Volume 8.2 6.9-10.8 fL Neutrophils (%) (Auto) 59.7 37.0-80.0 % Lymphocytes (%) (Auto) 24.4 10.0-50.0 % Monocytes (%) (Auto) 9.6 0.0-12.0 % Eosinophils (%) (Auto) 5.8 0.0-7.0 % Basophils (%) (Auto) 0.5 0.0-2.0 % Neutrophils # (Auto) 5.3 1.6-8.6 10 ^3/uL Lymphocytes # (Auto) 2.2 0.4-5.4 10 ^3/uL Monocytes # (Auto) 0.8 0-1.3 10 ^3/uL Eosinophils # (Auto) 0.5 0-0.8 10 ^3/uL Basophils # (Auto) 0 0-0.2 10 ^3/uL Nucleated Red Blood Cells 0.3 % Sodium Level 142 136-145 mmol/L Potassium Level 3.9 3.5-5.1 mmol/L Chloride Level 105 98-107 mmol/L Carbon Dioxide Level 28 20-31 mmol/L Anion Gap 9 5-15 Blood Urea Nitrogen 10 9-23 mg/dL Creatinine 0.89 0.700-1.30 mg/dL Glomerular Filtration Rate Calc 110 >90 mL/min BUN/Creatinine Ratio 11.2 10.0-20.0 Serum Glucose 88 74-106 mg/dL Calcium Level 9.5 8.7-10.4 mg/dL Total Bilirubin 1.2 H 0.2-1.0 mg/dL Aspartate Amino Transferase (AST) 15 13-40 U/L Alanine Aminotransferase (ALT) 13 7-40 U/L Alkaline Phosphatase 81 46-116 U/L Total Protein 7.8 5.7-8.2 g/dL Albumin 4.8 3.2-4.8 g/dL Lipase 24 12-53 U/L Urine Color Yellow Yellow Urine Clarity Turbid H Clear Urine pH 6.5 5.0-9.0 Urine Specific [place] 1.026 1.001-1.035 Urine Protein Negative Negative Urine Ketones Negative Negative Urine Blood Negative Negative /uL Urine Nitrite Negative Negative Urine Bilirubin Negative Negative Urine Urobilinogen Normal Negative mg/dL Urine Leukocyte Esterase Negative Negative /uL Urine RBC 2 0 - 3 /hpf Urine Microscopic WBC < 1 0-3 /HPF Urine Squamous Epithelial Cells Few <5 /hpf Urine Amorphous Crystals Few None Seen /hpf Urine Bacteria None seen None Seen /hpf Urine Mucus Few None Seen Urine Glucose Trace Normal mg/dL [place] [id number] Ph: [phone] DIAGNOSTIC IMAGING Diagnostic Imaging Report : [id number] Signed PATIENT: JANET FINE ACCT: [id number] UNIT: [id number] : 1980 LOC: ER ROOM / BED: / AGE / SEX: 43 / M ADM STATUS: REG ER SERVICE [id number] ORDERING PHYSICIAN: IMAN MINER MD PROCEDURE(s): ABPL - CT AB PEL WO CON-NO ORAL OR IV REASON: epigastric pain, history of pancreatitis ORDER NUMBER(s): [id number], ACCESSION NUMBER(s): [id number] EXAM: CT Abdomen and Pelvis Without Intravenous Contrast CLINICAL INDICATION: epigastric pain, history of pancreatitis TECHNIQUE: Axial computed tomography images of the abdomen and pelvis without intravenous contrast. This CT exam was performed using one or more of the following dose reduction techniques: automated exposure control, adjustment of the mA and/or kV according to patient size, and/or use of iterative reconstruction technique. CONTRAST: COMPARISON: None FINDINGS: LUNG BASES: Unremarkable. No mass. No consolidation. ABDOMEN: LIVER: Fatty infiltration of the liver. GALLBLADDER AND BILE DUCTS: Unremarkable. No calcified stones. No ductal dilation. PANCREAS: Unremarkable. No ductal dilation. No CT evidence of acute pancreatitis. No pseudocyst or perforation. No abscess. SPLEEN: Unremarkable. No splenomegaly. ADRENALS: Unremarkable. No mass. KIDNEYS AND URETERS: Unremarkable. No stones within either kidney. No hydronephrosis. STOMACH AND BOWEL: Unremarkable. No obstruction. No mucosal thickening. PELVIS: APPENDIX: No findings to suggest acute appendicitis. BLADDER: Unremarkable. No stones. REPRODUCTIVE: Unremarkable as visualized. ABDOMEN and PELVIS: INTRAPERITONEAL SPACE: Unremarkable. No free air. No significant fluid collection. BONES/JOINTS: No acute fracture. No dislocation. SOFT TISSUES: Umbilical hernia containing fat. VASCULATURE: Unremarkable. No abdominal aortic aneurysm. LYMPH NODES: Unremarkable. No enlarged lymph nodes. OTHER FINDINGS: . . . IMPRESSION: 1. No CT evidence of acute pancreatitis. No pseudocyst or perforation. No abscess. 2. Umbilical hernia containing fat. 3. No obstructive uropathy. ATED BY: ONUR EVANS MD DICTATED DATE/TIME: 07/05/241816 SIGNED BY: ONUR EVANS MD SIGNED DATE/TIME: 07/05/241816 CC: Time of 1ST Reevaluation: 18:35 Reevaluation 1ST: Unchanged Time of 2ND Reevaluation: 19:25 Reevaluation 2ND: Improved Patient Education/Counseling: Diagnosis, Treatment, Prognosis, Need For Follow Up Family Education/Counseling: No Family Present Additional Information The following tests were ordered, and results were reviewed by me: UA, CBC, CMP, LIPASE, CT ABD PEL I reviewed and agreed with the following test results read by other providers: CT ABD PEL I discussed treatment and results with medical personnel and: patient Comprehensive systems review obtained and negative except for what is stated in the HPI. pt does not have pancreatitis, nor any acute findings on the ct and labs. he may have gastritis, GERD, and the fat containing hernia may be symptomatic. he is stable for discharge to follow up with his doctor Departure 1 Departure Time of Disposition: 19:26 Impression: Primary Impression: Umbilical hernia Qualified Codes: K42.9 - Umbilical hernia without obstruction or gangrene Additional Impression: Epigastric pain Disposition: HOME / SELF CARE / HOMELESS Condition: Good Discharged With: Self Critical Care Note Critical Care Time?: No Stability Stability form required: No Heart Score Heart Score: Heart Score Response (Comments) Value History N/A 0 EKG N/A 0 Age N/A 0 Risk Factors N/A 0 Troponin N/A 0 Total 0 I personally scribed for IMAN MINER MD ([email or web address]) on 07/05/24 at 18:34. Electronically submitted by Beatriz Cisneros ([email or web address]). I personally scribed for IMAN MINER MD ([email or web address]) on 07/05/24 at 18:35. Electronically submitted by Beatriz Cisneros ([email or web address] [employer]). IMAN MINER MD July 05, 2024 18:34
[2024-07-05 18:39] LABS: Alanine Aminotransferase 13 U/L (7-40); Albumin 4.8 g/dL (3.2-4.8); Alkaline Phosphatase 81 U/L (46-116); Anion Gap 9 (5-15); Aspartate Aminotransferase 15 U/L (13-40); BUN/Creatinine Ratio 11.2 (10.0-20.0); Blood Urea Nitrogen 10 mg/dL (9-23); Calcium 9.5 mg/dL (8.7-10.4); Carbon Dioxide 28 mmol/L (20-31); Chloride 105 mmol/L (98-107); Glucose 88 mg/dL (74-106); Lipase 24 U/L (12-53); Potassium 3.9 mmol/L (3.5-5.1); Sodium 142 mmol/L (136-145); Total Protein 7.8 g/dL (5.7-8.2)
[2024-07-05 18:43] LABS: Bilirubin, Total 1.2 mg/dL (0.2-1.0)
[2024-07-05 19:02] LABS: Basophils # (auto) 0 10 ^3/uL (0-0.2); Basophils % (auto) 0.5 % (0.0-2.0); Eosinophils # (auto) 0.5 10 ^3/uL (0-0.8); Eosinophils % (auto) 5.8 % (0.0-7.0); Hematocrit 48.8 % (41.0-53.0); Hemoglobin 17.2 g/dL (13.5-17.5); Lymphocytes # (auto) 2.2 10 ^3/uL (0.4-5.4); Lymphocytes % (auto) 24.4 % (10.0-50.0); Mean Corpuscular Hemoglobin 30.5 pg (28.0-32.0); Mean Corpuscular Hgb Conc. 35.3 g/dL (32.0-36.0); Mean Corpuscular Volume 86.4 fL (80.0-100.0); Monocytes # (auto) 0.8 10 ^3/uL (0-1.3); Monocytes % (auto) 9.6 % (0.0-12.0); Neutrophils # (auto) 5.3 10 ^3/uL (1.6-8.6); Neutrophils % (auto) 59.7 % (37.0-80.0); Nucleated Red Blood Cells % 0.3 %; Platelet Count (auto) 234 10^3/uL (140-450); Red Blood Cells 5.64 10^6/uL (4.5-5.90); Red Cell Distribution Width 13.6 % (11.8-14.3); White Blood Cell 8.9 10^3/uL (4.4-10.8)
[2024-07-05 20:09] VITALS: BP 111/85; TEMP 97.8
[2024-07-05 20:10] VITALS: PULSE 75; RESP 22; O2SAT 98
== END 2024-07-05 20:17 | disposition home or self-care (01) ==
LOC: ER 17:01
DX: K42.9 Umbilical hernia without obstruction or gangrene (principal); R10.13 Epigastric pain; F17.210 Nicotine dependence, cigarettes, uncomplicated; F12.90 Cannabis use, unspecified, uncomplicated; Z79.899 Other long term (current) drug therapy; Z88.1 Allergy status to other antibiotic agents
CPT/HCPCS: 36415; 74176; 80053; 81001; 83690; 85025

== ENCOUNTER 2024-08-09 12:02 | Emergency (ER) | payer MEDICAID ==
[~2024-08-09] VITALS: Ht 170.2 cm; Wt 59.1 kg
--- NOTE | 2024-08-09 12:18 | ED.PDOC ---
History of Present Illness HPI Comments 43 year old male was BIBA for the c/c of Left Sided Chest pain. Pt states that his CP started yesterday morning in his Left Axilla region. But notes his pain has migrated to the left side of his chest, and has associated SOB, N/, and Dizziness at this time. Pt also notes of Marijuana abuse, History of Gastritis, and Schizophrenia. No other associated factors, symptoms, or modifiers at this time. Time Seen by MD: 12:13 Primary Care Provider: none Reviewed Notes: Nurses Notes, Tray Filler Notes, Medications, Allergies Allergies: Coded Allergies: Diphenhydramine (Verified Allergy, Unknown, 09/04/17) Home Meds Active Scripts Promethazine-Dm (Promethazine Dm 6.25-15 mg/5Ml) 1 Ani Ani, 5 ML PO Q4HPRN PRN, #120 ML 0 Refills Prov:MIO FOURNIER [facility] 02/19/22 Acetaminophen (Tylenol) 325 Mg Cap, 325 MG PO Q4HPRN PRN, #30 CAP 0 Refills take 1-2 caps PO q4h prn Prov:MIO FOURNIER [facility] 02/19/22 Albuterol Sulfate (Albuterol Sulfate Hfa) 108 Mcg/Act Aer, 2 PUFF IN Q4HPRN PRN, #1 INHALER 0 Refills Prov:MIO FOURNIER [facility] 02/19/22 Pantoprazole Sodium Sesquihydr (Protonix) 40 Mg Tab, 40 MG PO DAILY, #30 TAB Prov:BETY DUMAS MD 08/02/21 Methylprednisolone (Medrol Dosepak) 4 Mg Kishore, 4 MG PO UD, #21 TAB UAD Prov:JUANITA MILLER MD 08/26/19 Levofloxacin (Levaquin 750 mg) 750 Mg Tab, 1 TAB PO DAILY, #7 TAB Prov:JUANITA MILLER MD 08/26/19 Information Source: Patient Mode of Arrival: EMS Severity: Moderate Timing: Hours Duration: Since onset, Hours Prehospital treatment: None Past Medical History PAST MEDICAL HISTORY: Schizophrenia Surgical History: Denies all surgeries Family History Family History: Family hx of DM, Family hx of Cancer, Family hx of HTN Social History Smoker: Cigarettes, Less Than 1 Pack/Day Alcohol: Heavy, Sober Drugs: Marijuana Lives In: Home Constitutional: denies: chills, diaphoresis, fatigue, fever, malaise, sweats, weakness, others EENTM: denies: blurred vision, double vision, ear bleeding, ear discharge, ear drainage, ear pain, ear ringing, eye pain, eye redness, hearing loss, mouth pain, mouth swelling, nasal discharge, nose bleeding, nose congestion, nose pain, photophobia, tearing, throat pain, throat swelling, voice changes, others Respiratory: denies: cough, hemoptysis, orthopnea, SOB at rest, shortness of breath, SOB with excertion, stridor, wheezing, others Cardiovascular: reports: chest pain; denies: dizzy spells, diaphoresis, Dyspnea on exertion, edema, irregular heart beat, left arm pain, lightheadedness, palpitations, PND, syncope, others Gastrointestinal: denies: abdomen distended, abdominal pain, blood streaked bowels, constipated, diarrhea, dysphagia, difficulty swallowing, hematemesis, melena, nausea, poor appetite, poor fluid intake, rectal bleeding, rectal pain, vomiting, others Genitourinary: denies: burning, dysuria, flank pain, frequency, hematuria, incontinence, penile discharge, penile sore, pain, testicle pain, testicle swelling, urgency, others Neurological: denies: dizziness, fainting, headache, left sided numbness, left sided weakness, numbness, paresthesia, pre-existing deficit, right sided numbness, right sided weakness, seizure, speech problems, tingling, tremors, weakness, others Musculoskeletal: denies: back pain, gout, joint pain, joint swelling, muscle pain, muscle stiffness, neck pain, others Integumetry: denies: bruises, change in color, change in hair/nails, dryness, laceration, lesions, lumps, rash, wounds, others Allergic/Immunocompromised: denies: Difficulty Healing, Frequent Infections, Hives, Itching, others Hematologic/Lymphatic: denies: anemia, blood clots, easy bleeding, easy bruising, swollen glands, others Endocrine: denies: excessive hunger, excessive sweating, excessive thirst, excessive urination, flushing, intolerance to cold, intolerance to heat, unexplained weight gain, unexplained weight loss, others Psychiatric: denies: anxiety, bipolar disorder, depression, hopeless, panic disorder, schizophrenia, sleepless, suicidal, others All Other Systems: Reviewed and Negative Physical Exam General Appearance: Moderate Distress HEENT: Normal ENT Inspection, Pharynx Normal, TMs Normal Neck: Full Range of Motion, Non-Tender, Normal, Normal Inspection Respiratory: Chest Non-Tender, Lungs Clear, No Accessory Muscle Use, No Respiratory Distress, Normal Breath Sounds Cardiovascular: No Edema, No JVD, No Murmur, No Gallop, Normal Peripheral Pulses, Regular Rate/Rhythm Breast Exam: Deferred Gastrointestinal: No Organomegaly, Non Tender, No Pulsatile Mass, Normal Bowel Sounds, Soft Genitalia: Deferred Pelvic: Deferred Rectal: Deferred Extremities: No calf tenderness, Normal capillary refill, Normal inspection, Normal range of motion, Non-tender, No pedal edema Musculoskeletal : Apperance: Normal Neurologic: Alert, middleware consultant II-XII nml as Tested, No Motor Deficits, Normal Affect, Normal Mood, No Sensory Deficits Cerebellar Function: Normal Reflexes: Normal Skin: Dry, Normal Color, Warm Lymphatic: No Adenopathy Was a procedure done? Was a procedure done?: No EKG EKG : Pulse Rate (adult): 92 Felt: Normal Cardiac Rhythm: NSR Block: None Hypertrophy: LAE ST: Normal Differential Dx Considerations may include: Generalized weakness, chest pain, ACS, LA X-Ray, Labs, Meds, VS Vital Signs Date Time Temp Pulse Resp B/P (MAP) Pulse Ox O2 Delivery O2 Flow Rate FiO2 08/09/24 13:19 114 18 93 Room Air* 0 21 08/09/24 13:18 97.7 114 18 154/99 (117) 93 97.7 08/09/24 13:14 99 08/09/24 12:18 92 08/09/24 12:11 92 08/09/24 12:03 98.6 96 18 136/95 (109) 97 98.6 Lab Test 08/09/24 13:27 08/09/24 12:29 Range/Units White Blood Count 10.3 4.4-10.8 10^3/uL Red Blood Count 5.82 4.5-5.90 10^6/uL Hemoglobin 17.7 H 13.5-17.5 g/dL Hematocrit 50.3 41.0-53.0 % Mean Corpuscular Volume 86.5 80.0-100.0 fL Mean Corpuscular Hemoglobin 30.5 28.0-32.0 pg Mean Corpuscular Hemoglobin Concent 35.2 32.0-36.0 g/dL Red Cell Distribution Width 13.0 11.8-14.3 % Platelet Count 252 140-450 10^3/uL Mean Platelet Volume 8.0 6.9-10.8 fL Neutrophils (%) (Auto) 73.9 37.0-80.0 % Lymphocytes (%) (Auto) 16.5 10.0-50.0 % Monocytes (%) (Auto) 6.8 0.0-12.0 % Eosinophils (%) (Auto) 2.2 0.0-7.0 % Basophils (%) (Auto) 0.6 0.0-2.0 % Neutrophils # (Auto) 7.6 1.6-8.6 10 ^3/uL Lymphocytes # (Auto) 1.7 0.4-5.4 10 ^3/uL Monocytes # (Auto) 0.7 0-1.3 10 ^3/uL Eosinophils # (Auto) 0.2 0-0.8 10 ^3/uL Basophils # (Auto) 0.1 0-0.2 10 ^3/uL Nucleated Red Blood Cells 0.2 % D-Dimer, Quantitative Pending Sodium Level Pending Potassium Level Pending Chloride Level Pending Carbon Dioxide Level Pending Anion Gap Pending Blood Urea Nitrogen Pending Creatinine Pending Glomerular Filtration Rate Calc Pending BUN/Creatinine Ratio Pending Serum Glucose Pending Calcium Level Pending Troponin I High Sensitivity Pending Urine Color Yellow Yellow Urine Clarity Clear Clear Urine pH 6.0 5.0-9.0 Urine Specific [place] 1.031 1.001-1.035 Urine Protein Trace H Negative Urine Ketones Negative Negative Urine Blood Negative Negative /uL Urine Nitrite Negative Negative Urine Bilirubin Negative Negative Urine Urobilinogen Normal Negative mg/dL Urine Leukocyte Esterase Negative Negative /uL Urine RBC 1 0 - 3 /hpf Urine Microscopic WBC 1 0-3 /HPF Urine Squamous Epithelial Cells None seen <5 /hpf Urine Bacteria None seen None Seen /hpf Urine Mucus Few None Seen Urine Glucose Normal Normal mg/dL Current Medications Medications (Trade) Dose Ordered Sig/Jayleen Route Start Time Stop Time Status Last Admin Aspirin 162 mg ONCE ONCE PO 08/09/24 12:30 08/09/24 12:31 DC 08/09/24 13:12 Prochlorperazine Edisylate (Compazine Inj) 10 mg ONCE ONCE IV 08/09/24 12:30 08/09/24 12:31 DC 08/09/24 13:11 IMPRESSION: No acute cardiopulmonary disease. The CBC is within normal limits At this time the urine test is negative The chemistry panel is pending The patient was given aspirin 162 mg by mouth. The patient was given Compazine 10 mg IV push Images Reviewed?: Images reviewed and evaluated by me Time of 1ST Reevaluation: 12:24 Reevaluation 1ST: Unchanged Patient Education/Counseling: Diagnosis, Treatment, Prognosis Family Education/Counseling: No Family Present SEPSIS Sepsis Screen Physician Orders D-Dimer (08/09/24 12:28) Heplock Iv (08/09/24 12:28) Commercial Sales Representative (08/09/24 12:28) Blood Pressure (08/09/24 12:28) Pulse Oximetry (08/09/24 12:28) Chest Two Views Routine (08/09/24 12:28) Troponin-I Hs (08/09/24 12:28) Basic Metabolic Panel (08/09/24 12:28) Troponin-I Hs (08/09/24 13:28) Troponin-I Hs (08/09/24 15:28) Electrocardigram (08/09/24 15:28) Vital Signs Date Time Temp Pulse Resp B/P (MAP) Pulse Ox O2 Delivery O2 Flow Rate FiO2 08/09/24 13:19 114 18 93 Room Air* 0 21 08/09/24 13:18 97.7 114 18 154/99 (117) 93 97.7 08/09/24 13:14 99 08/09/24 12:18 92 08/09/24 12:11 92 08/09/24 12:03 98.6 96 18 136/95 (109) 97 98.6 Laboratory Tests Test 08/09/24 13:27 White Blood Count 10.3 10^3/uL (4.4-10.8) Medications Medications Dose Ordered Sig/Jayleen Route Start Time Stop Time Status Last Admin Dose Admin Aspirin 162 mg ONCE ONCE PO 08/09/24 12:30 08/09/24 12:31 DC 08/09/24 13:12 Prochlorperazine Edisylate 10 mg ONCE ONCE IV 08/09/24 12:30 08/09/24 12:31 DC 08/09/24 13:11 Departure 1 Departure Time of Disposition: 14:01 Impression: Primary Impression: Acute chest pain Additional Impression: Acute myocardial ischemia Disposition: 09 ADMITTED INPATIENT Admit to: Tele Condition: Fair Critical Care Note Critical Care Time?: Yes (45 min-critical care time only) Stability Stability form required: Yes Unstable for transfer: Telemetry monitoring (Telemetry monitoring required), ED Physician Assesment (Clinical assesment) Heart Score Heart Score: Heart Score Response (Comments) Value History Slightly Suspicious 0 EKG Normal 0 Age <45 0 Risk Factors 1 or 2 risk factors 1 Troponin Normal limit 0 Total 1 I personally scribed for BETY DUMAS MD ([email or web address]) on 08/09/24 at 12:18. Electronically submitted by Negro Rose ([email or web address]). I personally scribed for BETY DUMAS MD ([email or web address]) on 08/09/24 at 13:10. Electronically submitted by Negro Rose ([email or web address]). BETY DUMAS MD Aug 09, 2024 12:18
--- NOTE | 2024-08-09 12:30 | ECG ---
[facility] Test Date: 2024-08-09 Test Time: 12:11:03 Pat Name: JANET FINE Department: ER Room: Gender: M Load Out Person: : 1980 Requested By: BETY DUMAS Order Number: [id number] Reading MD: Robin Jackson Measurements Intervals [place] Rate: 92 P: 80 MT: 154 QRS: 106 QRSD: 96 T: 59 QT: 356 QTc: 441 Interpretive Statements Sinus rhythm Probable left atrial enlargement Consider right ventricular hypertrophy Electronically Signed On 08-10-2024 22:54:53 PDT by Robin Jackson Please click the below link to view image of tracing.
[2024-08-09 12:45] LABS: Urine Bacteria None Seen /hpf (None Seen)
[2024-08-09 12:58] LABS: Urine Blood Negative /uL (Negative); Urine Clarity Clear (Clear); Urine Color Yellow (Yellow); Urine Mucus FEW (None Seen); Urine Protein, UAD TRACE (Negative); Urine Specific Gravity 1.031 (1.001-1.035); Urine Squamous Epithelial Cell None Seen /hpf (<5); Urine Urobilinogen Normal (Negative); Urine WBC 1 /HPF (0-3)
--- NOTE | 2024-08-09 13:04 | DVH ---
XY CHEST TWO VIEWS ROUTINE CLINICAL HISTORY: CP COMPARISON: None TECHNIQUE: Frontal and lateral view of the chest was obtained FINDINGS: Lines and Tubes: None Lungs: No focal consolidation. Pleura: No effusion. No pneumothorax. Cardiomediastinal contours: Unremarkable Bones: No acute osseous abnormality. IMPRESSION: No acute cardiopulmonary disease.
[2024-08-09] MEDS: PROCHLORPERAZINE EDISYLATE 5 MG/ML 2ML VIAL IV ONE (13:11)
[2024-08-09] MEDS: ASPirin 81 mg TAB PO ONE (13:12)
--- NOTE | 2024-08-09 13:15 | ECG ---
[facility] Test Date: 2024-08-09 Test Time: 13:14:16 Pat Name: JANET FINE Department: ED Room: Gender: M Music Store Manager: HOANG : 1980 Requested By: BETY DUMAS Order Number: [id number] Reading MD: Robin Jackson Measurements Intervals [place] Rate: 99 P: 88 [place]: 157 QRS: 246 QRSD: 92 T: 58 QT: 329 QTc: 423 Interpretive Statements Sinus rhythm Biatrial enlargement Left anterior fascicular block Consider right ventricular hypertrophy ST elev, probable normal early repol pattern Electronically Signed On 08-10-2024 22:55:16 PDT by Robin Jackson Please click the below link to view image of tracing.
[2024-08-09 13:19] VITALS: PULSE 114; RESP 18; O2SAT 93
[2024-08-09 13:46] LABS: Basophils # (auto) 0.1 10 ^3/uL (0-0.2); Basophils % (auto) 0.6 % (0.0-2.0); Eosinophils # (auto) 0.2 10 ^3/uL (0-0.8); Eosinophils % (auto) 2.2 % (0.0-7.0); Hematocrit 50.3 % (41.0-53.0); Hemoglobin 17.7 g/dL (13.5-17.5); Lymphocytes # (auto) 1.7 10 ^3/uL (0.4-5.4); Lymphocytes % (auto) 16.5 % (10.0-50.0); Mean Corpuscular Hemoglobin 30.5 pg (28.0-32.0); Mean Corpuscular Hgb Conc. 35.2 g/dL (32.0-36.0); Mean Corpuscular Volume 86.5 fL (80.0-100.0); Monocytes # (auto) 0.7 10 ^3/uL (0-1.3); Monocytes % (auto) 6.8 % (0.0-12.0); Neutrophils # (auto) 7.6 10 ^3/uL (1.6-8.6); Neutrophils % (auto) 73.9 % (37.0-80.0); Nucleated Red Blood Cells % 0.2 %; Platelet Count (auto) 252 10^3/uL (140-450); Red Blood Cells 5.82 10^6/uL (4.5-5.90); White Blood Cell 10.3 10^3/uL (4.4-10.8)
[2024-08-09 14:03] LABS: Anion Gap 12 (5-15); Carbon Dioxide 23 mmol/L (20-31); Chloride 106 mmol/L (98-107); Potassium 3.8 mmol/L (3.5-5.1); Sodium 141 mmol/L (136-145)
[2024-08-09 14:04] LABS: Calcium 9.5 mg/dL (8.7-10.4)
[2024-08-09 14:09] LABS: BUN/Creatinine Ratio 11.2 (10.0-20.0); Blood Urea Nitrogen 10 mg/dL (9-23)
[2024-08-09 14:10] LABS: Glucose 136 mg/dL (74-106)
[2024-08-09 15:37] VITALS: BP 125/89; PULSE 82; RESP 18; TEMP 97.9; O2SAT 96
== END 2024-08-09 15:38 | disposition home or self-care (01) ==
LOC: ER 12:02
DX: R07.89 Other chest pain (principal); I99.8 Other disorder of circulatory system; F17.210 Nicotine dependence, cigarettes, uncomplicated; F10.20 Alcohol dependence, uncomplicated; F20.9 Schizophrenia, unspecified; F12.10 Cannabis abuse, uncomplicated; Z87.19 Personal history of other diseases of the digestive system; Z79.899 Other long term (current) drug therapy; Z88.1 Allergy status to other antibiotic agents; Y90.9 Presence of alcohol in blood, level not specified
CPT/HCPCS: 36415; 71046; 80048; 81001; 84484; 85025; 85379; 93005; 96374; 99291; J0780